=== PATIENT | female | born 1990 | race Two or more races ===

== ENCOUNTER 2022-11-15 08:49 | Emergency (ER) | payer MEDICAID, OTHER, SELFPAY ==
[2022-11-15 08:52] VITALS: BP 131/77; PULSE 94; RESP 18; TEMP 36.6; O2SAT 98; BMI 22.9
--- NOTE | 2022-11-15 09:08 | ED_ITS ---
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 She reports a h istory of cystitis and states that she took 1 Macrobid this morning without any relief. She reports that in her home country of [place] her symptoms typically improve with Macrobid. She also reports an episode of right lower quadrant pain which radiated to her back this morning. Reports history of ovarian cysts prior to giving to her son. Denies any nausea, vomiting, diarrhea, constipat ion. Denies any vaginal discharge or vaginal bleeding. Denies any concern for STIs. Denies fevers. MD elicited complaint: dysuria Pertinent past history: interstitial cystits Onset (ago): hour(s) Location of symptoms: suprapubic, RLQ and urethra Severity: severe Quality of pain: burning Consistency: constant Vaginal discharge: none Vaginal bleeding: none Urinary symptoms: Dysuria and Frequency Exacerbating factors: urination Relieving factors: none Associated symptoms: back pain Treatment prior to arrival: other (nitrofurantoin) Sexual activity: Yes Patient : No Related Data Previous Rx's Medication Instructions Recorded cefuroxime axetil 500 mg tablet 500 mg PO BID #13 tabs 11/15/22 phenazopyridine 200 mg tablet 200 mg PO TID PRN pain #5 tabs 11/15/22 Allergies Allergy/AdvReac Type Severity Reaction Status Date / Time No Known Allergies Allergy Verified 11/15/22 08:57 Review of Systems Review of Systems: As per HPI. Yes all other systems are reviewed and are negative Constitutional: Constitutional: Reports as per HPI [facility] Social History Social History Advance Directives: No Advance Directives Information Provided: Yes Patient : No Physical Exam Vital Signs: Vital Signs: Last Vital Signs Temp 97.8 F 11/15/22 08:52 Pulse 94 11/15/22 08:52 Resp 18 11/15/22 08:52 BP 131/77 11/15/22 08:52 Pulse Ox 98 11/15/22 08:52 O2 Del Method Room Air 11/15/22 08:52 BMI result Body Mass Index 22.9 Vital signs have been reviewed and appear to be correct. Blood pressure normal. Heart rate normal. Respiratory rate normal. Temperature normal. Oxygen saturation normal. Const: General: cooperative, healthy appearing and no acute distress Orientation/consciousness: oriented to person, oriented to place, oriented to time and patient oriented x3 Limitations: no limitations HEENT: Head: Yes normocephalic and Yes atraumatic Ears: external ears normal General nose exam: Normal external nose present Face and sinus: Yes face symmetric Mouth: oropharynx normal and moist mucous membranes Throat: Yes uvula midline Eyes: Pupils: Equal, round and reactive pupils present Neck: Neck: Yes normal visual inspection and Yes supple Resp: Effort & Inspection: normal respiratory effort and able to speak in complete sentences Auscultation: clear to auscultation bilaterally Cardio: Rate: regular rate Rhythm: regular rhythm Heart sounds: S1 normal heart sound present and S2 normal heart sound present GI: Palpation (GI): Soft to palpation and nontender Auscultation: normoactive bowel sounds : General: Yes no CVA tenderness Back/Spine/Pelvis: Back: no CVA tenderness Skin: General skin exam: elasticity normal and turgor normal Neuro: General: oriented to person, oriented to place, oriented to time, patient oriented x3, moves all extremities, no focal motor deficits and CN's II- XI intact bilaterally Cranial nerves: Yes Equal, round and reactive pupils present Cognition (Neuro): normal cognition Extrem: General: Yes full ROM, Yes no pedal edema and Yes no calf tenderness Psych: Mental Status: mental status grossly normal Affect: normal affect Thought process: Normal thought process present Medications Administered Discontinued Medications Generic Name Dose Route Start Last Admin Trade Name Freq PRN Reason Stop Dose Admin Cefuroxime Axetil 500 mg 11/15/22 09:55 11/15/22 10:08 Cefuroxime Axetil 500 Mg Tablet PO 11/15/22 09:56 500 mg ONCE ONE Administration Phenazopyridine HCl 200 mg 11/15/22 09:55 11/15/22 10:08 Phenazopyridine Hcl 200 Mg Tablet PO 11/15/22 09:56 200 mg ONCE ONE Administration Medical Decision Making Medical Decision Making MDM Narrative: Patient is a 32-year-old [place]-speaking female presenting to the emergency department with complaint dysuria since early this morning. On exam patient is awake, A+Ox3, VS WNL, afebrile, normal neurological exam without focal deficits, abdomen is soft and nontender, no guarding or rebound tenderness, no CVA tenderness. Given reported symptoms and physical exam findings, initial differential includes UTI/pyelonephritis, STI, cysitis, ovarian cyst. Low suspicion for kidney stone or infected stone. UA positive for 3+ leuks, 2+ blood, greater than 50 wbc's. Do not suspect pyelonephritis as patient does not have any CVA tenderness, is afebrile, not tachycardic. Patient declining testing for STIs. Will treat patient for UTI with cefuroxime b.i.d. for 7 days, will also prescribe Pyridium for discomfort. Advised patient to drink plenty of fluids and follow-up with primary care provider. Return precautions discussed at bedside. Patient verbalized understanding of and agreement with plan. Differential Diagnosis Differential Diagnoses: The differential diagnosis associated with the presentation includes As per MDM. Lab Data [facility] Lab Attestation statement: I reviewed the patient's lab results. As per MDM. Labs: Lab Results 11/15/22 11/15/22 Range/Units 09:38 09:38 Urine Color Yellow Urine Appearance Cloudy Urine pH 5.5 (5.0-9.0) Ur Specific Staley 1.020 (1.005-1.025) Urine Protein Negative (Neg-Trace) mg/dL Urine Glucose (UA) Negative (Negative) mg/dL Urine Ketones Negative (Negative) mg/dL Urine Blood Moderate (2+) H (Negative) Urine Nitrite Negative (Negative) Ur Leukocyte Esterase Large (3+) H (Negative) Urine RBC >20 H (0-2) /HPF Urine WBC >50 H (0-5) /HPF Ur Squamous Epith Cells 0-2 (0-2) /HPF Urine Bacteria None Seen (None Seen) Hyaline Casts 0-2 (0-2) /LPF Urine Test NEGATIVE (NEGATIVE) External Record Review External record reviewed: Inpatient record, Office record and Outpatient record Prescription Management I considered prescription management with: Pain Medication and Antibiotic Discharge Plan Discharge Clinical Impression: Urinary tract infection Patient Disposition: Home, Self-Care Instructions: Urinary Tract Infection in Women (DC) Additional Instructions: Teresa sido evaluado en el departamento de emergencias hoy por morris s?ntomas urinarios. [place] evaluaci?n, incluido el an?lisis de orina, sugiere que morris s?ntomas se deben a yamile infecci?n del tracto urinario. [place] los antibi?ticos recetados natalie todo el tratamiento seg?n las indicaciones. Kobe un seguimiento con zarco proveedor de atenci?n primaria dentro de los 2 d?as. Regrese al departamento de emergencias si experimenta fiebre de 100.4? F o m?s, dolor que empeora o no controla, v?mitos, dolor en el costado o cualquier otro s?ntoma preocupante. Prescriptions: New cefuroxime axetil 500 mg tablet 500 mg PO BID Qty: 13 0RF Rx Instructions: You received your first dose in the emergency department this morning. Pleas e take your next dose at bedtime. phenazopyridine 200 mg tablet 200 mg PO TID PRN (Reason: pain) Qty: 5 0RF Interventions: ED Discharge Assessment Last Done: 11/15/22 10:39 Discharge Date/Time: 11/15/22 10:40
[2022-11-15 09:44] LABS: Appearance Urine Cloudy; Color Urine Yellow; Glucose Urine UA Negative (Negative); Leukocyte Esterase Urine Large (3+) (Negative); Nitrite Urine Negative (Negative); PH 5.5 (5.0-9.0); UMIC TRIGGER UACC YES; Urine Blood Moderate (2+) (Negative); Urine Ketones Negative (Negative); Urine Protein Negative (Neg-Trace)
[2022-11-15 09:45] LABS: UPreg QC Valid YES; Urine Pregnancy NEGATIVE (NEGATIVE)
[2022-11-15 09:46] LABS: Bacteria Urine None Seen (None Seen); Hyaline Casts Urine 0-2 /LPF (0-2); RBC Urine >20 /HPF (0-2); Squamous Epithelial Cell Urine 0-2 /HPF (0-2); UACC Culture Trigger YES; WBC Urine >50 /HPF (0-5)
[2022-11-15] MEDS: Phenazopyridine HCL 200 MG TABLET PO (10:08)
== END 2022-11-15 10:40 | disposition home or self-care (01) ==
PROVIDERS: Registered Nurse Emergency; Emergency Provider Emergency Medicine
DX: N39.0 Urinary tract infection, site not specified (principal); Z79.899 Other long term (current) drug therapy
CPT/HCPCS: 81001; 81025; 87086; 99283

== ENCOUNTER 2023-02-12 13:50 | Outpatient (REF) | payer MEDICAID, OTHER, SELFPAY ==
[2023-02-12 14:20] LABS: Appearance Urine Clear; Color Urine Orange; Glucose Urine UA 100 mg/dL (Negative); PH 5.5 (5.0-9.0); Specific Gravity - Urine 1.025 (1.005-1.025); UMIC TRIGGER UA YES; Urine Blood Negative (Negative); Urine Ketones Negative (Negative); Urine Protein 30 (1+) mg/dL (Neg-Trace)
[2023-02-12 14:44] LABS: RBC Urine 0-2 /HPF (0-2); WBC Urine 0-5 /HPF (0-5)
[2023-02-12 14:45] LABS: Bacteria Urine None Seen (None Seen); Hyaline Casts Urine 0-2 /LPF (0-2); Squamous Epithelial Cell Urine 0-2 /HPF (0-2)
[2023-02-18 11:14] LABS: Candida glabrata RNA NOT DETECTED (NOT DETECTED); Candida species RNA NOT DETECTED (NOT DETECTED); Trichomonas vaginalis RNA NOT DETECTED (NOT DETECTED)
== END 2023-02-12 13:51 | disposition home or self-care (01) ==
LOC: HO.HHCLNP 13:50
PROVIDERS: Visit Provider Nurse Practitioner Primary Care
DX: R30.0 Dysuria (principal)
CPT/HCPCS: 36415; 81001; 81513; 87086; 87481; 87491; 87591; 87661

== ENCOUNTER 2023-05-12 14:51 | Outpatient (REF) | payer MEDICAID, OTHER, SELFPAY ==
--- NOTE | ~2023-05-12 | US_ITS ---
EXAMINATION: US PELVIS CLINICAL INFORMATION: Chronic pelvic pain. COMPARISON: None available. TECHNIQUE: Ultrasound of the pelvis is performed using both transabdominal and transvaginal transducers along with Doppler. Transvaginal imaging is performed due to inadequate visualization transabdominally. FINDINGS: UTERUS: The uterus is anteverted and measures 8.1 x 3.0 x 3.2 cm. The double wall endometrial thickness is 0.7 mm. The uterus is smooth in contour and has normal myometrial echogenicity. No visible fibroid. Nabothian cysts are present in the cervix. ADNEXA: Both ovaries are visualized. There is normal color flow to the adnexa. There is no ovarian torsion. There is no pelvic ascites or fluid collection. Right ovary measures 2.7 x 1.5 x 1.7 cm for a volume of 3.6 mL. Follicular cysts are noted Left ovary measures 3.2 x 1.6 x 2.0 cm for a volume of 5.4 mL. Follicular cysts are noted including one exophytic 1.3 x 0.7 x 1.2 cm cyst. US/US pelvic and transvaginal IMPRESSION: Unremarkable pelvic ultrasound.
== END 2023-05-12 14:52 | disposition home or self-care (01) ==
LOC: HO.US 14:51
PROVIDERS: PCP Student in an Organized Health Care Education/Training Program; Visit Provider Student in an Organized Health Care Education/Training Program
DX: R10.2 Pelvic and perineal pain (principal)
CPT/HCPCS: 76830; 76856

== ENCOUNTER 2023-05-24 09:13 | Outpatient (REF) | payer MEDICAID, OTHER, SELFPAY ==
[2023-05-24 11:18] LABS: Appearance Urine Clear; Color Urine Yellow; Glucose Urine UA Negative (Negative); Leukocyte Esterase Urine Negative (Negative); Nitrite Urine Negative (Negative); PH 5.5 (5.0-9.0); Specific Gravity - Urine 1.025 (1.005-1.025); Urine Blood Negative (Negative); Urine Ketones Negative (Negative); Urine Protein Negative (Neg-Trace)
[2023-05-24 11:25] LABS: Bacteria Urine None Seen (None Seen); Hyaline Casts Urine 0-2 /LPF (0-2); RBC Urine 0-2 /HPF (0-2); WBC Urine 0-5 /HPF (0-5)
[2023-05-24 11:39] LABS: Hematocrit 38.1 % (37.0-47.0); Hemoglobin 13.1 g/dl (12.0-16.0); Mean Corpuscular HGB Conc 34.4 g/dl (31.0-35.0); Mean Corpuscular Hemoglobin 30.5 pg (27.0-33.0); Mean Corpuscular Volume 88.6 fL (80.0-98.0); Mean Platelet Volume 10.4 fL (9.4-12.3); Platelet Count 202 X10*3/uL (160-400); Red Cell Distribution Width 12.7 % (11.0-16.0); White Blood Count 4.3 X10*3/uL (4.8-10.8)
[2023-05-24 12:01] LABS: Estimated Average Glucose 88 mg/dL; Hemoglobin A1c % 4.7 % (<6.0)
[2023-05-24 12:14] LABS: Alanine Aminotransferase 10 U/L (0-31); Albumin Level 3.9 g/dL (3.5-5.0); Alkaline Phosphatase 50 U/L (39-117); Anion Gap 9 (12-20); Aspartate Amino Transferase 15 U/L (5-31); Bilirubin Total 0.4 mg/dL (0.0-1.0); Blood Urea Nitrogen 14 mg/dL (9-16); C Reactive Protein < 0.10 mg/dL (< or = 0.50); Calcium 8.8 mg/dL (8.4-10.2); Carbon Dioxide 28 mmol/L (22-29); Chloride 109 mmol/L (96-108); Cholesterol 174 mg/dL (<200); Estimated Glomerular Filt Rate > 60; Glucose Random 81 mg/dL (60-115); HDL Cholesterol 54 mg/dL (>40); LDL Cholesterol Calculated 98 mg/dL (<100); Potassium 3.7 mmol/L (3.3-5.1); Sodium 142 mmol/L (135-145); Total Protein 6.8 g/dL (6.5-8.0); Triglycerides 112 mg/dL (<150)
[2023-05-24 12:16] LABS: TSH reflex Free T4 1.08 uIU/mL (0.32-4.0)
[2023-05-24 12:45] LABS: Erythrocyte Sedimentation Rate 5 MM/HR (0-20)
[2023-05-24 14:38] LABS: CT PCR NOT DETECTED (Not Detect.); NG PCR NOT DETECTED (Not Detect.)
[2023-05-25 05:06] LABS: Syphilis Screen Nonreactive (Nonreactive)
[2023-05-25 05:27] LABS: HBS Num1 0.69 mIU/mL (0-7.99); HBc Num1 0.12 S/CO (0.00-0.79); HBsAGNum1 0.39 S/CO (0.00-0.99); HIV AB/AG Nonreactive (Nonreactive); HIV Num 1 0.06 S/CO (0.00-0.99); Hepatitis B Core Antibody Nonreactive (Nonreactive); Hepatitis B Surface Antigen Negative (Negative); ~HepC Num1 0.14 S/CO (0.00-0.79); ~Hepatitis B Surface Antibody NONREACTIVE (Nonreactive); ~Hepatitis C Antibody Nonreactive (Nonreactive)
[2023-05-25 05:37] LABS: CT PCR NOT DETECTED (Not Detect.); NG PCR NOT DETECTED (Not Detect.)
[2023-05-26 17:54] LABS: Anti Nuclear Antibody Screen NEGATIVE (NEGATIVE)
[2023-05-26 22:04] LABS: TS Negative Control Passed; TS Panel A 0; TS Panel B 0; TS Positive Control Passed; TSpotTB Negative (Negative)
== END 2023-05-24 09:14 | disposition home or self-care (01) ==
LOC: HO.HHCL 09:13
PROVIDERS: Advanced Practice Midwife; Visit Provider Student in an Organized Health Care Education/Training Program
DX: Z00.00 Encounter for general adult medical examination without abnormal findings (principal); R21 Rash and other nonspecific skin eruption; N76.6 Ulceration of vulva; Z11.3 Encounter for screening for infections with a predominantly sexual mode of transmission
CPT/HCPCS: 0353U; 36415; 80053; 80061; 81001; 83036; 84443; 85027; 85652; 86038; 86140; 86481; 86695; 86696; 86704; 86706; 86780; 86803; 87340; 87389

== ENCOUNTER 2023-05-24 18:56 | Outpatient (REF) | payer MEDICAID, OTHER, SELFPAY ==
[2023-05-28 06:33] LABS: HPV mRNA E6/E7 rflx Not Detected (Not Detected)
== END 2023-05-24 18:57 | disposition home or self-care (01) ==
LOC: HO.HHCLNP 18:56
PROVIDERS: Visit Provider Advanced Practice Midwife
DX: Z01.419 Encounter for gynecological examination (general) (routine) without abnormal findings (principal)
CPT/HCPCS: 87624; 88142

== ENCOUNTER 2023-10-05 15:20 | Outpatient (REF) | payer MEDICAID, OTHER, SELFPAY ==
[2023-10-05 16:02] LABS: MANUAL DIFF FLAG NO
[2023-10-05 16:12] LABS: Basophils Percent Auto 0.4 % (0-2); Eosinophils Absolute Auto 0.1 X10*3/uL (0.0-0.4); Eosinophils Percent Auto 1.6 % (0-4); Hematocrit 35.6 % (37.0-47.0); Hemoglobin 12.2 g/dl (12.0-16.0); Imm Gran Abs Auto 0.01 X10*3/uL (0.00-0.03); Imm Gran Pct Auto 0.2 % (0.0-0.4); Lymphocytes Absolute Auto 1.4 X10*3/uL (1.2-4.9); Lymphocytes Percent Auto 29.5 % (20-40); Mean Corpuscular HGB Conc 34.3 g/dl (31.0-35.0); Mean Corpuscular Hemoglobin 30.7 pg (27.0-33.0); Mean Corpuscular Volume 89.7 fL (80.0-98.0); Mean Platelet Volume 10.1 fL (9.4-12.3); Monocytes Absolute Auto 0.4 X10*3/uL (0.1-1.2); Neutrophils Absolute Auto 2.9 x10*3/uL (2.0-8.3); Neutrophils Percent Auto 60.3 % (45-73); Platelet Count 225 X10*3/uL (160-400); Red Blood Count 3.97 X10*6/uL (4.20-5.50); Red Cell Distribution Width 12.3 % (11.0-16.0); White Blood Count 4.9 X10*3/uL (4.8-10.8)
[2023-10-05 16:44] LABS: Alanine Aminotransferase 7 U/L (0-31); Albumin Level 4.2 g/dL (3.5-5.0); Alkaline Phosphatase 67 U/L (39-117); Anion Gap 12 (12-20); Aspartate Amino Transferase 13 U/L (5-31); Bilirubin Total 0.2 mg/dL (0.0-1.0); Blood Urea Nitrogen 11 mg/dL (9-16); Calcium 8.8 mg/dL (8.4-10.2); Carbon Dioxide 23 mmol/L (22-29); Chloride 107 mmol/L (96-108); Estimated Glomerular Filt Rate > 60; Glucose Random 78 mg/dL (60-115); Potassium 3.8 mmol/L (3.3-5.1); Sodium 138 mmol/L (135-145); Total Protein 6.9 g/dL (6.5-8.0)
[2023-10-05 17:01] LABS: TSH reflex Free T4 0.82 uIU/mL (0.32-4.0)
== END 2023-10-05 15:21 | disposition home or self-care (01) ==
LOC: HO.HHCL 15:20
PROVIDERS: Visit Provider Student in an Organized Health Care Education/Training Program
DX: D72.819 Decreased white blood cell count, unspecified (principal)
CPT/HCPCS: 36415; 80053; 84443; 85025

== ENCOUNTER 2023-10-19 15:58 | Outpatient (REF) | payer MEDICAID, OTHER, SELFPAY ==
--- NOTE | ~2023-10-19 | US_ITS ---
EXAMINATION: US PELVIS CLINICAL INFORMATION: Left ovarian cyst, follow up, last menstrual period 09/27/2023. COMPARISON: 05/12/2023. TECHNIQUE: Ultrasound of the pelvis is performed using both transabdominal and transvaginal transducers along with Doppler. Transvaginal imaging is performed due to inadequate visualization transabdominally. FINDINGS: The uterus is anteverted and measures 7.4 x 3.9 x 4.6 cm. Small amount of fluid within the endometrial cavity. Double wall endometrial thickness is 7 mm. Right ovary measures 2.9 x 1.5 x 1.7 cm, volume 3.9 mL. Left ovary measures 2.3 x 1.1 x 1.7 cm, volume 2.2 mL. 1.3 x 0.6 x 1.0 cm exophytic left ovarian cyst appears simple. Previous exam demonstrated a 1.3 x 0.7 x 1.2 cm left ovarian exophytic cyst. There is no specific indication for additional imaging. Small amount of free fluid in the pelvis. US/US pelvic and transvaginal IMPRESSION: 1. Small amount of fluid within the endometrial cavity. Double wall endometrial thickness is 7 mm. 2. 1.3 cm exophytic left ovarian cyst appears simple. Previous exam demonstrated a 1.3 x 0.7 x 1.2 cm left ovarian exophytic cyst. There is no specific indication for additional imaging. 3. Small amount of free fluid in the pelvis.
== END 2023-10-19 15:59 | disposition home or self-care (01) ==
LOC: HO.US 15:58
PROVIDERS: PCP Student in an Organized Health Care Education/Training Program; Visit Provider Student in an Organized Health Care Education/Training Program
DX: R10.2 Pelvic and perineal pain (principal); N83.202 Unspecified ovarian cyst, left side
CPT/HCPCS: 76830; 76856

== ENCOUNTER 2023-11-11 17:32 | Outpatient (REF) | payer MEDICAID, OTHER, SELFPAY | END 2023-11-11 17:33 | disposition home or self-care (01) | LOC: HO.HHCLNP 17:32 | PROVIDERS: Visit Provider Advanced Practice Midwife | DX: R35.0 Frequency of micturition (principal) | CPT/HCPCS: 87086; 87088; 87186 ==

== ENCOUNTER 2023-11-13 14:01 | Emergency (ER) | payer MEDICAID, OTHER, SELFPAY ==
[2023-11-13 14:21] VITALS: BP 112/63; PULSE 87; RESP 16; TEMP 36.8; O2SAT 100; BMI 25.9
[2023-11-13 14:57] LABS: MANUAL DIFF FLAG NO
--- NOTE | 2023-11-13 14:57 | ED.FEMALEGU ---
HPI - Female Genitourinary General Chief complaint: Urogenital-Female Stated complaint: freq urination Time Seen by Provider: 11/13/23 14:56 Source: patient Mode of arrival: ambulatory Limitations: language barrier (Citizen Of [place]-speaking certified court/medical interpreter utilized) History of Present Illness HPI Narrative: Patient is a 33-year-old female who presents emergency department for evaluation. She endorses 3 days of urinary frequency and dysuria. Two days ago she was prescribed Macrobid and Pyridium but she has not had any improvement. She states that typically Macrobid does help her symptoms after 2 days. She feels as though she is having urinary frequency and urgency at this time and pain diffusely across the lower back. Denies nausea, vomiting, fevers, chills, diarrhea, constipation. Related Data Previous Rx's ?Medication ?Instructions ?Recorded cefuroxime axetil 500 mg tablet 500 mg PO BID #13 tabs 11/15/22 phenazopyridine 200 mg tablet 200 mg PO TID PRN pain #5 tabs 11/15/22 cefuroxime axetil 500 mg tablet 500 mg PO BID #10 tabs 11/13/23 Allergies Allergy/AdvReac Type Severity Reaction Status Date / Time No Known Allergies Allergy Verified 11/13/23 14:23 Review of Systems Review of Systems: Yes all other systems are reviewed and are negative PMFSH Past Medical History Attestation statement: The following information was validated with the patient. Source: old records reviewed Social History Social History (System 02/16/23 @ 07:24 by Fabi Murray) Smoked in Last 30 Days: No Use of substances other than those prescribed or required for medical reasons: No Advance Directives: No Advance Directives Information Provided: No Do you have a plan to hurt others: No Plan Physical Exam Vital Signs: Vital Signs: Last Vital Signs Temp 98.2 F 11/13/23 16:00 Pulse 74 11/13/23 16:00 Resp 18 11/13/23 16:00 BP 105/66 11/13/23 16:00 Pulse Ox 99 11/13/23 16:00 O2 Del Method Room Air 11/13/23 16:00 BMI result Body Mass Index 25.9 Appearance: Alert.?Oriented to person, place and time. No acute distress.?Normal affect. Eyes: Pupils equal, round and reactive to light.? ENT: Pharynx normal.?? Neck: Normal inspection.? Neck supple.?? CVS: Heart sounds normal. Normal heart rate and rhythm.? Pulses normal.?? Respiratory: No respiratory distress.? Lung sounds clear to auscultation bilaterally?? Abdomen: Soft and non-tender. Normoactive bowel sounds. No CVA tenderness. Skin: Skin warm and dry.? Normal skin color.? Extremities: No lower extremity edema.? Neuro: Moves all extremities spontaneously. Sensation intact bilaterally. Ambulates with normal steady gait. Course Reevaluation(s) Reevaluation #1: Urinalysis with improvement when compared to prior, remains nitrite positive with trace leukocyte esterase, however she did have urine culture 2 days ago growing E coli, patient feels strongly about having her antibiotic changed at this point though I did explain to her that her most recent culture showed sensitivity to Macrobid. Will change to cefuroxime at this time. Stable for discharge. Tolerating oral intake. Advised outpatient follow-up with primary care provider. All questions answered. Medical Decision Making Medical Decision Making [facility] Narrative: Patient is a 33-year-old female past medical history of urinary tract infections presenting to emergency department for evaluation of symptoms as per HPI. On examination appears overall well, nontoxic, afebrile. Abdominal examination is benign. No CVA tenderness. No rashes or lesions. Denies possibility of ; but is uncertain of the date of her last menstrual cycle. Denies concern for sexually transmitted infections and declines testing. Will obtain CBC to evaluate for leukocytosis/ anemia, CMP and lipase to evaluate for abnormal electrolytes /abnormal renal function/ abnormal hepatic/biliary function, and repeat Urinalysis, postvoid bladder scan she denies examination of the genitalia, denies open sores/lesions. Upon review of medical record her urine culture from 11/11/2023 grew E coli pain sensitivity. I feel that the Macrobid would be adequate treatment, but likely has not taken this long enough for symptomatic improvement, however she feels strongly that she needs a change. Differential Diagnosis Differential Diagnoses: The differential diagnosis associated with the presentation includes (Urinary tract infection cholecystitis, suspect less likely to have acute pyelonephritis given no CVA tenderness nausea vomiting or fever. Sexually transmitted infection. Genital herpes) Admission/Observation Consideration of admission/observation: Escalation of care including admission/observation considered Lab Data [facility] Lab Attestation statement: I reviewed the patient's lab results. CBC is without leukocytosis anemia or thrombocytopenia. No electrolyte derangement. No TANIA. LFTs within normal range. Urinalysis positive for nitrites, trace leukocyte esterase, no urine bacteria seen, suspect this is secondary to her recent treatment with antibiotic. hCG is negative 11/13/23 14:45 11/13/23 14:45 Labs: Lab Results 11/13/23 11/13/23 Range/Units 14:45 15:48 WBC 4.8 (4.8-10.8) X10*3/uL RBC 4.07 L (4.20-5.50) X10*6/uL Hgb 12.4 (12.0-16.0) g/dl Hct 36.2 L (37.0-47.0) % MCV 88.9 (80.0-98.0) fL MCH 30.5 (27.0-33.0) pg MCHC 34.3 (31.0-35.0) g/dl RDW 12.2 (11.0-16.0) % Plt Count 205 (160-400) X10*3/uL MPV 9.6 (9.4-12.3) fL Immature Gran % (Auto) 0.6 H (0.0-0.4) % Neut % (Auto) 59.0 (45-73) % Lymph % (Auto) 29.4 (20-40) % Benzie % (Auto) 8.9 (2-11) % Eos % (Auto) 1.7 (0-4) % Baso % (Auto) 0.4 (0-2) % Lymph # (Auto) 1.4 (1.2-4.9) X10*3/uL Benzie # (Auto) 0.4 (0.1-1.2) X10*3/uL Eos # (Auto) 0.1 (0.0-0.4) X10*3/uL Baso # (Auto) 0.0 (0.0-0.2) X10*3/uL Abs Immat Gran (auto) 0.03 (0.00-0.03) X10*3/uL Absolute Neuts (auto) 2.9 (2.0-8.3) x10*3/uL Absolute Nucleated RBC 0.000 (0.0-0.012) X10*3/uL Nucleated RBC % (auto) 0.0 (0.0-0.2) /100WBC Sodium 142 (135-145) mmol/L Potassium 4.0 (3.3-5.1) mmol/L Chloride 110 H (96-108) mmol/L Carbon Dioxide 25 (22-29) mmol/L Anion Gap 11 L (12-20) BUN 11 (9-16) mg/dL Creatinine 0.70 (0.5-1.4) mg/dL Estim Creat Clear Calc 87.1 Estimated GFR > 60 Random Glucose 73 (60-115) mg/dL Calcium 8.5 (8.4-10.2) mg/dL Total Bilirubin 0.2 (0.0-1.0) mg/dL AST 13 (5-31) U/L ALT 8 (0-31) U/L Alkaline Phosphatase 62 (39-117) U/L Total Protein 6.8 (6.5-8.0) g/dL Albumin 3.9 (3.5-5.0) g/dL Urine Color Dark Yellow Urine Appearance Clear Urine pH 7.0 (5.0-9.0) Ur Specific Ernest 1.020 (1.005-1.025) Urine Protein Negative (Neg-Trace) mg/dL Urine Glucose (UA) Negative (Negative) mg/dL Urine Ketones Negative (Negative) mg/dL Urine Blood Negative (Negative) Urine Nitrite Positive H (Negative) Ur Leukocyte Esterase Trace H (Negative) Urine RBC 0-2 (0-2) /HPF Urine WBC 0-5 (0-5) /HPF Ur Squamous Epith Cells 3-5 (0-2) /HPF Urine Bacteria None Seen (None Seen) Hyaline Casts 0-2 (0-2) /LPF Urine Test NEGATIVE (NEGATIVE) Independent Historian Clinical information obtained from an independent historian. History obtained from or confirmed by: Spouse External Record Review External record reviewed: Outpatient record Prescription Management I considered prescription management with: Pain Medication (Acetaminophen, ibuprofen) and Antibiotic Discharge Plan Discharge Clinical Impression: Urinary tract infection Instructions: Urinary Tract Infection in Women (DC) Additional Instructions: As discussed, your testing today does not show an elevated white blood cell count which is very reassuring, your kidney functioning is normal. It is likely that the Macrobid you are currently prescribed would treat the infection that you have based on the most recent urine culture we received. However, given your expressed concern for no improvement in your symptoms despite a few days on treatment, this was changed to cefuroxime which she will take twice daily for the duration of the course, you may stop taking Macrobid at this time. You can take ibuprofen 200 mg, 3 tablets (600mg) every 6-8 hours as needed for pain, in addition to Tylenol 500 mg, 2 tablets (1,000mg) every 4-6 hours as needed for pain, but not to exceed 3 doses daily (3,000mg).? Follow-up with your primary care provider. You may return back to emergency department with any new or worsening symptoms or concerns. Prescriptions: New cefuroxime axetil 500 mg tablet 500 mg PO BID Qty: 10 0RF No Action cefuroxime axetil 500 mg tablet 500 mg PO BID Qty: 13 0RF Rx Instructions: You received your first dose in the emergency department this morning. Please take your next dose at bedtime. phenazopyridine 200 mg tablet 200 mg PO TID PRN (Reason: pain) Qty: 5 0RF Referrals: Marry Cabrera MD [Primary Care Provider] - Print Language: Citizen Of [place]
[2023-11-13 14:58] LABS: Basophils Percent Auto 0.4 % (0-2); Eosinophils Absolute Auto 0.1 X10*3/uL (0.0-0.4); Eosinophils Percent Auto 1.7 % (0-4); Hematocrit 36.2 % (37.0-47.0); Hemoglobin 12.4 g/dl (12.0-16.0); Imm Gran Abs Auto 0.03 X10*3/uL (0.00-0.03); Imm Gran Pct Auto 0.6 % (0.0-0.4); Lymphocytes Absolute Auto 1.4 X10*3/uL (1.2-4.9); Lymphocytes Percent Auto 29.4 % (20-40); Mean Corpuscular HGB Conc 34.3 g/dl (31.0-35.0); Mean Corpuscular Hemoglobin 30.5 pg (27.0-33.0); Mean Corpuscular Volume 88.9 fL (80.0-98.0); Mean Platelet Volume 9.6 fL (9.4-12.3); Monocytes Absolute Auto 0.4 X10*3/uL (0.1-1.2); Monocytes Percent Auto 8.9 % (2-11); Neutrophils Absolute Auto 2.9 x10*3/uL (2.0-8.3); Platelet Count 205 X10*3/uL (160-400); Red Blood Count 4.07 X10*6/uL (4.20-5.50); Red Cell Distribution Width 12.2 % (11.0-16.0); White Blood Count 4.8 X10*3/uL (4.8-10.8)
[2023-11-13 15:13] LABS: Alanine Aminotransferase 8 U/L (0-31); Albumin Level 3.9 g/dL (3.5-5.0); Alkaline Phosphatase 62 U/L (39-117); Anion Gap 11 (12-20); Aspartate Amino Transferase 13 U/L (5-31); Bilirubin Total 0.2 mg/dL (0.0-1.0); Blood Urea Nitrogen 11 mg/dL (9-16); Calcium 8.5 mg/dL (8.4-10.2); Carbon Dioxide 25 mmol/L (22-29); Chloride 110 mmol/L (96-108); Creatinine Clr Calc Pharmacy 87.1; Estimated Glomerular Filt Rate > 60; Glucose Random 73 mg/dL (60-115); Sodium 142 mmol/L (135-145); Total Protein 6.8 g/dL (6.5-8.0)
--- NOTE | 2023-11-13 15:52 | PC.NURSE ---
patient presents through external triage with cc of back pain, abdominal pain, urinary frequency and dysuria for the last 3 days. patient states she was seen at her doctors a few days ago and prescribed an antibiotic (macrobid) and another medication for bladder spasms but is still having pain and burning when she urinates. patient denies any fevers at home or any discharge. patinet abdomen soft, some tenderness to palpation throughout lower quadrants. patient ambulated with steady gait to provide urine sample, PVR bladder scan completed by this RN and showed 1mL of urine left in bladder after voiding. urine sample sent to lab at this time. patient blood work completed in triage. awaiting lab results at this time.
[2023-11-13 16:00] VITALS: BP 105/66; PULSE 74; RESP 18; TEMP 36.8; O2SAT 99
[2023-11-13 16:01] LABS: Appearance Urine Clear; Color Urine Dark Yellow; Glucose Urine UA Negative (Negative); Leukocyte Esterase Urine Trace (Negative); Nitrite Urine Positive (Negative); UMIC TRIGGER UACC YES; Urine Blood Negative (Negative); Urine Ketones Negative (Negative); Urine Protein Negative (Neg-Trace)
[2023-11-13 16:02] LABS: UPreg QC Valid YES; Urine Pregnancy NEGATIVE (NEGATIVE)
[2023-11-13 16:07] LABS: Bacteria Urine None Seen (None Seen); Hyaline Casts Urine 0-2 /LPF (0-2); RBC Urine 0-2 /HPF (0-2); UACC Culture Trigger YES; WBC Urine 0-5 /HPF (0-5)
[2023-11-13] MEDS: Ketorolac Tromethamine 15 MG/ML VIAL IM (16:25)
[2023-11-13 16:27] VITALS: BP 105/66; PULSE 74; RESP 18; TEMP 36.8; O2SAT 99
== END 2023-11-13 16:37 | disposition home or self-care (01) ==
PROVIDERS: Nurse Practitioner Family; Emergency Provider Emergency Medicine; PCP Student in an Organized Health Care Education/Training Program
DX: N39.0 Urinary tract infection, site not specified (principal)
CPT/HCPCS: 36415; 51798; 80053; 81001; 81003; 81025; 85025; 87086; 96372; 99284; J1885

== ENCOUNTER 2024-08-01 10:54 | Outpatient (REF) | payer MEDICAID, OTHER, SELFPAY ==
--- NOTE | ~2024-08-01 | MM_ITS ---
EXAMINATION: MM DIAGNOSTIC DIGITAL BREAST TOMOSYNTHESIS, BILATERAL Bilateral Limited ultrasound. CLINICAL INFORMATION: Bilateral breast pain. COMPARISON: Mammography: Comparison is made with relevant prior exams. TECHNIQUE: Digital breast mammography with tomosynthesis is performed in both the craniocaudal and mediolateral oblique views along with computer-aided detection (CAD). FINDINGS: The breasts are extremely dense, which lowers the sensitivity of mammography (ACR BI-RADS breast composition Category d). [place] markers bilateral upper outer breast at site of pain without underlying abnormality. There are no significant masses, abnormal calcifications, or other abnormalities. Targeted color Doppler ultrasound scanning in the right breast area of patient's pain from 6-12 o'clock demonstrates normal fibronodular breast tissue and there is a few simple to minimally complicated cysts: A simple cyst at 11:00 recent meters from the nipple measuring 7 x 7 x 4 mm. There are adjacent subcentimeter cysts which are simple. Targeted color Doppler ultrasound scanning in the left breast area of patient's pain from 12 6:00 demonstrates normal fibroglandular breast tissue and a simple cyst: A simple cyst at 2:00 8 cm from the nipple measuring 9 x 9 x 4 mm. Results are provided to the patient at time of visit by the technologist. MM/MM tomosynthesis diagnostic BI IMPRESSION: No definite mammographic or sonographic abnormality to account for the patient's bilateral breast pain. Recommend clinical evaluation and follow-up. Bilateral incidental simple cyst on ultrasound. Benign. ASSESSMENT: BI-RADS BI-RADS 2 - Benign Findings RECOMMENDATION: 1. Patient should be managed based on the clinical impression. 2. Otherwise, routine annual screening mammography. Electronically signed by: Carmen Pruitt DO 08/01/2024 11:50 AM EDT
--- OUTSIDE RECORDS SUMMARY | 2024-08-01 12:10 | XMS_ITS | Encounter Summary ---
Author Organization [employer] Address [address] [place] [address] Care Team Providers Care Cd Mixer Helper Name Role Phone Marry Cabrera MD Primary Care Pro vider Encounter Details Date Type Department Care Team ([facility] st Contact Info) Description 05/27/2023 Orders Only [facility] MEDICINE [address] [place] [address] Melissa Melchor CN [address] [place] [address] Social History Tobacco Use Types Packs/Day Years Used Date Smoking Tobacco: Never Passive Smoke Exposure: Never Smokeless Tobacco: Never Alcohol Use Standard Drinks/Week Comments Not Currently 0 (1 standard drink = 0.6 oz pur e alcohol) social Depression Answer Date Recorded Patient Health Questionnaire-9 Score 10 04/29/2023 Patient Health Questionnaire-9 Score 10 04/29/2023 Last PHQ-9: Questionnaire Data Not on file 0 04/29/2023 Housing Stability Answer Date Recorded What is your housing situation today? I do not have housing (Staying with others, in a hotel, in a jail, living outside on the street, on a beach, in a car, or in a park 04/21/[address] you li ve. Do you have problems with any of the following? None of the above 04/21/2023 Food Insecurity Answer Date Recorded Within the past 12 months, y ou worried that your food would run out before you got money to buy more: Sometimes True 2023 Within the past 12 months,th e food you bought just didn't last and you didn't have enough money to get more: Sometimes True 04/21/2023 Transportation Answer Date Recorded In the past 12 months, has l ack of transportation kept you from medical appts, meetings, work or from getting things needed for daily living? No 04/21/2023 Utilities Answer Date Recorded In the past 12 months, has t he electric, gas, oil or water company threatened to shut off services in your home? No 04/21/2023 Depression Answer Date Recorded Patient Health Questionnaire-2 Score 0 04/29/2023 Comments Unknown Sex and Gender Information Value Date Recorded Sex Assigned at Female 02/12/2023 8:42 AM EST Legal Sex Female 8:38 AM EST Gender Identity Female 02/12/2023 8:42 AM EST Sexual Orientation Straight 02/12/2023 8: 42 AM EST documented as of this encounter Plan of Treatment Upcoming Encounters Date Type Department Care Team (Late st Contact Info) Description 08/08/2024 10:15 AM EDT Office Visit [facility] MEDICINE [address] [place] [phone] Melissa Melchor CNM [address] [place] [phone] 08/22/2024 3:30 PM EDT Clinical Support [facility] DIABETES/NUTRITION [address] [place] [id number] Danica Neumann, BRENDA [address] [place] [phone] 08/23/2024 2:00 PM EDT Office Visit [facility] MEDICINE [address] [place] [phone] Marry Cabrera MD [address] [place] [phone] documented as of this encounter Visit Diagnoses Not on filedocumented in this encounter Additional Health Concerns Assessment Noted Time PHQ-9 Depression Total Score: 10 024 2:17 PM EST documented as of this encounter Care Teams Cd Mixer Helper Relationship Specialty Start Date End Date Marry Cabrera MD [address] [place] [id number] PCP - General Internal Medicine 04/30/23 documented as of this encounter
--- OUTSIDE RECORDS SUMMARY | 2024-08-01 12:10 | XMS_ITS | Clinical Summary ---
Author Organization [employer] Address [address] [facility] [address] [place] [address] Care Team Providers Care Portfolio Assistant Name Role Phone Marry Cabrera MD Primary Care Pro vider Allergies No known active allergies Medications * This document contains information received from the source organization and may not represent a complete record from that organization. metroNIDAZOLE (Metrogel) 0.75 % gelIndications: Rosacea Apply topically 2 times daily. 45 g 3 5 03/24/19 26 Active ammonium lactate (Amlactin) 12 % cream Apply topically if needed for dry skin. 140 g 1 5 Active melatonin 5 MG tablet Take 1 tablet (5 mg) by mouth Once per day. 30 tablet 2 5 Active acyclovir (Zovirax) 800 MG tablet Take 1 tablet (800 mg) by mouth 3 times daily. 6 tablet 10 5 07/21/19 25 Active Problems Problem Noted Date Diagnosed Date Mastalgia 06/21/2024 Adjustment disorder with mixed anxiety and depre ssed mood 06/21/2024 Recurrent genital herpes 05/28/2023 Vertigo 05/28/2023 Health care maintenance 05/02/2023 Lower urinary tract symptoms (LUTS) 05/02/2023 Insomnia 05/02/2023 Skin rash 05/02/2023 Chronic pelvic pain in female 05/02/2023 Resolved Problems Problem Noted Date Diagnosed Date Resolved Date Pruritus 08/18/2023 06/21/2024 Encounters * This document contains information received from the source organization and may not represent a complete record from that organization. Date Type Department Care Team Description 07/28/2024 3:00 PM EDT Nutrition [facility] DIABETES/NUTRITION [address] [place] [address] Overweight (BMI 25.0-29.9) 07/28/2024 Travel 07/06/2024 Orders Only [facility] MEDICINE [address] [place] [phone] Marry Cabrera MD Mastalgia (Primary Dx) 06/20/2024 2:30 PM EDT Office Visit [address] [address] Marry Cabrera MD Overweight (BMI 25.0-29.9) (Primary Dx); Dietary counseling; Exercise counseling; Mastalgia; Annual physical exam; Recurrent genital herpes; Health care maintenance; Skin rash 06/20/2024 Travel 06/09/2024 Patient Outreach [address] [address] Marry Cabrera MD Pre-visit Planning (Pre-visit planning - LVM ) 06/08/[address] [address] Marry Cabrera MD chart prep 06/01/[address] [phone] Marry Cabrera MD Nurse Triage from Last 3 Months Immunizations Immunization Administration Dates Next Due HPV 9-Valent 06/20/2024,07/07/2023,06/02/2023 Hep B, adult 12/03/2023,06/25/2023,05/28/2023 Influenza injectable quadriv alent preservative free 04/29/2023 Pfizer Covid-19 Vaccine 12+ 04/29/2023 Tdap 04/29/2023 Family History Medical History Relation Name Comments Hypertension Maternal Grandmother Migraines Mother Breast cancer Mother's Sister two materna l aunts with breast cancer in their 60s Diabetes Paternal Grandmother Hypertension Paternal Grandmother Relation Name Status Comments Maternal Grandmother Mother Mother's Sister Paternal Grandmother Social History Tobacco Use Types Packs/Day Years Used Date Smoking Tobacco: Never Passive Smoke Exposure: Never Smokeless Tobacco: Never Tobacco Cessation:Counseling Given: Not Answered Alcohol Use Standard Drinks/Week Comments Not Currently 0 (1 standard drink = 0.6 oz pur e alcohol) social Depression Answer Date Recorded Patient Health Questionnaire-9 Score 11 06/20/2024 Patient Health Questionnaire-9 Score 11 06/20/2024 Last PHQ-9: Questionnaire Data Not on file 0 06/20/2024 Housing Stability Answer Date Recorded What is your housing situation today? I have nat steven 06/20/[address] you li ve. Do you have problems with any of the following? None of the above 06/20/2024 Food Insecurity Answer Date Recorded Within the past 12 months, y ou worried that your food would run out before you got money to buy more: Never True 06/20/2024 Within the past 12 months,th e food you bought just didn't last and you didn't have enough money to get more: Never True 10/2024 Transportation Answer Date Recorded In the past 12 months, has l ack of transportation kept you from medical appts, meetings, work or from getting things needed for daily living? No 06/20/2024 Utilities Answer Date Recorded In the past 12 months, has t he electric, gas, oil or water company threatened to shut off services in your home? No 06/20/2024 Depression Answer Date Recorded Patient Health Questionnaire-2 Score 3 06/20/2024 Internet Access Answer Date Recorded Internet Access Q1 Yes 06/20/2024 Internet Access Q2 Not on file 06/20/2024 Comments No Sex and Gender Information Value Date Recorded Sex Assigned at Female 02/12/2023 8:42 AM EST Legal Sex Female 8:38 AM EST Gender Identity Female 02/12/2023 8:42 AM EST Sexual Orientation Straight 02/12/2023 8: 42 AM EST Last Filed Vital Signs Vital Sign Reading Time Taken Comments Blood Pressure 103/63 06/20/2024 2:25 PM EDT Pulse 84 06/20/2024 2:25 PM EDT Temperature 36.7 ??C (98 ??F) 06/20/2024 2:25 PM EDT Respiratory Rate 20 06/20/2024 2:25 PM EDT Oxygen Saturation 98% 06/20/2024 2:25 PM EDT Inhaled Oxygen Concentration - - Weight 60.5 kg (133 lb 6.4 oz) 07/31/2024 11:23 AM EDT Height 152.4 cm (5') 07/31/2024 11:23 AM EDT Body Mass Index 26.05 07/31/2024 11:23 AM EDT Plan of Treatment Upcoming Encounters Date Type Department Care Team (Late st Contact Info) Description 08/08/2024 10:15 AM EDT Office Visit [facility] MEDICINE [address] [place] [phone] Melissa Garcia, GLORIA [address] [place] [address] 08/22/2024 3:30 PM EDT Clinical Support [facility] DIABETES/NUTRITION [address] [place] [phone] Danica Neumann, BRENDA [address] [place] [address] 08/23/2024 2:00 PM EDT Office Visit [facility] MEDICINE [address] [place] [phone] Marry Cabrera MD [address] [place], [place] [phone] Health Maintenance Due Date Last Done Comments Hepatitis A Vaccines (1 of 2 - Risk 2-dose series) 10/06/2007 COVID-19 Vaccine (2 - 2023-2 5 season) 2023 04/29/2023 Influenza Vaccine (#1) 2023 04/29/2023 Family Planning (PISQ) 11/22/2024 11/23/2023 Alcohol/Substance Use Screening 06/20/2025 06/20/2024 Depression Screening 06/20/2025 06/20/2024, 06/20/2024 Disability Screening 06/20/2025 06/20/2024 SDOH Screening 06/20/2025 06/20/2024 Tobacco Screening 06/20/2025 06/20/2024 HPV/Cotest 05/23/2028 05/24/2023 Pap Smear 05/23/2028 05/24/2023 DTaP/Tdap/Td Vaccines (2 - T d or Tdap) 04/29/2033 04/29/2023 Zoster Vaccines (1 of 2) 2038 RSV Patients and Patients Aged 60 years or older (1 - 1-dose 75+ series) 10/06/2063 HIV Screening Completed 05/24/2023 Hepatitis C Screening Completed 05/24/2023 Hepatitis B Vaccines Completed 12/03/2023, 06/25/2023, 05/28/2023 HPV Vaccines Completed 06/20/2024, 07/07/2023, 06/02/2023 HIB Vaccines Aged Out No longer eligi ble based on patient's age to complete this topic IPV Vaccines Aged Out No longer eligi ble based on patient's age to complete this topic Meningococcal B Vaccine Aged Out No l onger eligible based on patient's age to complete this topic Meningococcal Vaccine Aged Out No yann zoë eligible based on patient's age to complete this topic Pneumococcal Vaccine: Pediatrics (0 to 5 Years) and At-Risk Patients (6 to 49) Years) Aged Out No longer eligible b ased on patient's age to complete this topic RSV under 20 months Aged Out No longe r eligible based on patient's age to complete this topic Rotavirus Vaccines Aged Out No longer eligible based on patient's age to complete this topic Procedures Procedure Name Priority Date/Time Associated Diagnosis Comments BI MAMMOGRAM DIAGNOSTIC TOMOSYNTHESIS BILATERAL Routine 08/01/2024 11:00 AM EDT Mastalgia POCT , URINE Routine 06/20/2024 3:17 PM EDT Mastalgia HPV MRNA E6/E7 REFLEX TO HPV 16, 18/45 Routine 05/24/2023 10:29 AM EDT PAP SMEAR Routine 05/24/2023 10:29 AM EDT Cervical cancer screening HEPATITIS C AB W/REFL TO HCV RNA, QN, PCR Routine 05/24/2023 9:21 AM EDT Annual physical exam HIV 1/2 ANTIGEN/ANTIBODY, FOURTH GENERATION W/RFL Routine 05/24/2023 9:21 AM EDT Annual physical exam from Last 3 Months or Most Recently Relevant to Health Maintenance Results * BI Mammogram Diagnostic Tomosynthesis Bilateral (08/01/2024 11:00 AM EDT) Anatomical Region Laterality Modality Breast Bilateral Mammography 08/01/2024 11:0 0 AM EDT Narrative 08/01/2024 11:53 AM EDT ? [facility] ? [address] ?[place] [address] ?[phone] ? Mammography Report ? Signed ? Patient: Nietos Sorensen,Mis ?MR#: ?? [id number] ? : 1990 ?Acct:[id number] ? Age/Sex: 33 / F ?ADM Date: 08/01/ ? Loc: HO.MAMMO ? Attending Dr: Marry Esteves MD ? Ordering Physician: Marry Cabrera MD ?Re ?? sults: 2Benign Findings ? Date of Service: // ?Follow Up: 1 Year From Orig ?? inal Mammogram ? Procedure(s): MM tomosynthesis diagnostic BI ?? Accession Number(s): [id number] ? cc: Marry Cabrera MD ? EXAMINATION: ?? MM DIAGNOSTIC DIGITAL BREAST TOMOSYNTHESIS, BILATERAL ?? Bilateral Limited ultrasound. ? CLINICAL INFORMATION: ? Bilateral breast pain. ? COMPARISON: ?? Mammography: Comparison is made with relevant prior exams. ? TECHNIQUE: ?? Digital breast mammography with tomosynthesis is performed in both the ?? craniocaudal and mediolateral oblique views along with computer-aided ?? detection (CAD). ? FINDINGS: ?? The breasts are extremely dense, which lowers the sensitivity of ?? mammography (ACR BI-RADS breast composition Category d). ?? [place] markers bilateral upper outer breast at site of pain without ?? underlying abnormality. ?? There are no significant masses, abnormal calcifications, or other ?? abnormalities. ? Targeted color Doppler ultrasound scanning in the right breast area of ?? patient's pain from 6-12 o'clock demonstrates normal fibronodular ?? breast tissue and there is a few simple to minimally complicated cysts: ?? A simple cyst at 11:00 recent meters from the nipple measuring 7 x 7 x ?? 4 mm. ?? There are adjacent subcentimeter cysts which are simple. ? Targeted color Doppler ultrasound ??scanning in the left breast area of ?? patient's pain from 12 6:00 demonstrates normal fibroglandular breast ?? tissue and a simple cyst: ?? A simple cyst at 2:00 8 cm from the nipple measuring 9 x 9 x 4 mm. ? Results are provided to the patient at time of visit by the ?? technologist. ? MM/MM tomosynthesis diagnostic BI ?? IMPRESSION: ?? No definite mammographic or sonographic abnormality to account for the ?? patient's bilateral breast pain. Recommend clinical evaluation and ?? follow-up. ? Bilateral incidental simple cyst on ultrasound. Benign. ? ASSESSMENT: ? BI-RADS BI-RADS 2 - Benign Findings ? RECOMMENDATION: ?? 1. Patient should be managed based on the clinical impression. ?2. ?? Otherwise, routine annual screening mammography. ? Electronically signed by: ??Carmen Pruitt DO ??08/01/2024 11:50 AM EDT ?? RP ? Dictated By: ?Carmen Pruitt DO ? Signed By: ?<Electronically signed by Carmen Pruitt, DO in OV> ? 08/01/24 1150 ? DD/ 1100 ? TD/TT: 08/01/24 1121 ? Hims Manager: ? Procedure Note Donotuseinterpreter, Image - 08/01/2024 [facility] [address] [place] [address] Dr. [place], [place] [id number] Mammography Report Signed Patient: Mis SwansonMR#: [id number] : 1990Acct:[id number] Age/Sex: 33 / FADM Date: 08/01/24 Loc: HO.MAMMO Attending Dr: Marry Esteves MD Ordering Physician: Marry Cabrera sults: 2Benign Findings Date of Service: 08/01/24Follow Up: 1 Year From Orig inal Mammogram Procedure(s): MM tomosynthesis diagnostic BI Accession Number(s): [id number] cc: Marry Cabrera MD EXAMINATION: MM DIAGNOSTIC DIGITAL BREAST TOMOSYNTHESIS, BILATERAL Bilateral Limited ultrasound. CLINICAL INFORMATION: Bilateral breast pain. COMPARISON: Mammography: Comparison is made with relevant prior exams. TECHNIQUE: Digital breast mammography with tomosynthesis is performed in both the craniocaudal and mediolateral oblique views along with computer-aided detection (CAD). FINDINGS: The breasts are extremely dense, which lowers the sensitivity of mammography (ACR BI-RADS breast composition Category d). [place] markers bilateral upper outer breast at site of pain without underlying abnormality. There are no significant masses, abnormal calcifications, or other abnormalities. Targeted color Doppler ultrasound scanning in the right breast area of patient's pain from 6-12 o'clock demonstrates normal fibronodular breast tissue and there is a few simple to minimally complicated cysts: A simple cyst at 11:00 recent meters from the nipple measuring 7 x 7 x 4 mm. There are adjacent subcentimeter cysts which are simple. Targeted color Doppler ultrasound scanning in the left breast area of patient's pain from 12 6:00 demonstrates normal fibroglandular breast tissue and a simple cyst: A simple cyst at 2:00 8 cm from the nipple measuring 9 x 9 x 4 mm. Results are provided to the patient at time of visit by the technologist. MM/MM tomosynthesis diagnostic BI IMPRESSION: No definite mammographic or sonographic abnormality to account for the patient's bilateral breast pain. Recommend clinical evaluation and follow-up. Bilateral incidental simple cyst on ultrasound. Benign. ASSESSMENT: BI-RADS BI-RADS 2 - Benign Findings RECOMMENDATION: 1. Patient should be managed based on the clinical impression. 2. Otherwise, routine annual screening mammography. Electronically signed by: Carmen Pruitt DO 08/01/2024 11:50 AM EDT RP Dictated By: Carmen Pruitt DO Signed By: <Electronically signed by Carmen Pruitt DO in OV> 08/01/24 1150 DD/ 1100 TD/TT: 08/01/24 1121 Hims Manager: Marry Esteves MD IMG BI PROCEDURES Final Result * POCT Urine (06/20/2024 3:17 PM EDT) Preg Test, Ur Negative Negative, Indeterminate, None Detected, Invalid, Specimen unsatisfactory for evaluation, Weakly Positive QC Media Lot # [id number] Lot# Expiration Date [id number] Urine 06/20/2024 3:17 PM EDT Marry Esteves MD POINT OF CARE GARRETT T ENTER/EDIT ORDERABLES Final Result * HPV mRNA E6/E7 w/Reflex to HPV Genotypes 16, 18/45 (05/24/2023 10:29 AM EDT) HPV nRNA E6/E7 Not Detected Not Detected [facility] Comment:Methodology: Transcr iption-Mediated AmplificationThis assay detects E6/E7 viral messenger RNA (mRNA) from 14high-risk HPV types (16,18,31,33,35,39,45,51,52,56,58,59,66,68).Cervical sources are required for HPV testing.If a vaginal source from a patient who has had atotal hysterectomy with removal of cervix wassubmitted, please contact the testing laboratoryfor alternative testing options.For additional information, please refer [email or web address](This link if provided for information/educational purposes only.)THIS TEST WAS PERFORMED AT:[facility] [place] [phone] MATTHEWS MD HPV mRNA E6/E7 TNP [facility] HPV 16 RNA TNP [facility] HPV 18/45 RNA TNP [facility] 05/24/2023 10:2 9 AM EDT 05/25/2023 9:15 AM EDT us Melissa Garcia CNM LAB CYTOLOGY ORDERABLES F inal Result [facility] [address] [place] [phone] * Pap Smear (05/24/2023 10:29 AM EDT) Swab Cervix uteri structure / Unknown 05/24/2023 10:29 AM EDT 05/25/2023 9:15 AM EDT Narrative [facility] - 06/01/2023 9:33 AM EDT ----- ------- Name: Mis Swanson ?Age/Sex: 32/F ? : 1990 Unit#: [id number] ?? Attend Dr: MELISSA GARCIA CNM ?Re05/24/23 ?Status: DEP REF ? Location: HO.HHCLNP ? Disch: ? ----- ------- SPEC : [id number] ? RECD: 05/25/23 ? STATUS: ??SOUT ? REQ NUM: [id number] ? JHONNY: 05/24/23 ? SUBM DR: MELISSA GARCIA CNM ? ENTERED: ??05/25/23 ?SP TYPE: Pap Smr ?OTHR DR: ? ORDERED: ??Pap Smear ? Interpretation ?? Satisfactory for evaluation. ?? No endocervical cells seen. ?? Negative for intraepithelial lesion or malignancy. ?HPV mRNA E6/E7: ?NOT DETECTED ? This assay detects E6/E7 viral messenger RNA (mRNA) from 14 high-risk HPV types (16, 18, ?? 31, 33, 35, 39, 45, 51, 52, 56, 58, 59, 66, 68) ?? HPV testing performed by [facility], [place], [place]. ??See reference laboratory ?? portion of the EMR for entire report. ?Clinical Information LMP: Unknown date Previous PAP test: Unknown date/findings ? Material Received ?? ThinPrep-Vaginal/Cervical ----- ------- Signed (signature on file) MIHIR Angela (ASCP) 06/01/23 0933 ? ----- ------- ? END OF REPORT ? us Melissa Garcia [facility] CYTOLOGY ORDERABLES F inal Result [facility] [address] [place] [phone] * Hepatitis C Antibody with Reflex to HCV, RNA, Quantitative, Real-Time PCR (05/24/2023 9:21 AM EDT) Hepatitis C Antibody Nonreactive Nonreactive [facility] Comment:Antibodies to HCV no t detected; does not exclude early acuteHCV infection. Blood Venous blood specimen / Unknown 05/24/2023 9:21 AM EDT 05/24/2023 11:04 AM EDT us Marry Esteves MD LAB BLOOD ORDERAB LES Final Result Performing Organization Address [facility]/ZIP Co de Phone Number [facility] [address] [place] [phone] * HIV-1/2 Antigen and Antibodies, Fourth Generation, with Reflexes (05/24/2023 9:21 AM EDT) HIV AB/AG Nonreactive Nonreactive [facility] Comment:HIV-1 p24 Ag and/or HIV-1/HIV-2 Ab not detected.A test result that is nonreactive does not exclude thepossibility of exposure to or infection with HIV-1 and/orHIV-2. Nonreactive results in this assay for individualswith prior exposure to HIV-1 and/or HIV-2 may be due toantigen and antibody levels that are below the limit ofdetection of this assay.The Pliz[employer] HIV Ag/Ab Combo assay result andsupplemental assay results should be interpreted inconjunction with the patient's clinical presentation,history and other laboratory results. If the results areinconsistent with clinical evidence, additional testing issuggested to confirm the result. Blood Venous blood specimen / Unknown 05/24/2023 9:21 AM EDT 05/24/2023 11:04 AM EDT us Marry Esteves MD LAB BLOOD ORDERAB LES Final Result Performing Organization Address City/[facility]/ZIP Co de Phone Number [facility] [address] [place] [phone] from Last 3 Months or Most Recently Relevant to Health Maintenance Insurance [employer] Care Teams Portfolio Assistant Relationship Specialty Start Date End Date Marry Cabrera MD [address] [place] [phone] PCP - General Internal Medicine 04/30/23
--- OUTSIDE RECORDS SUMMARY | 2024-08-01 12:10 | XMS_ITS | Encounter Summary ---
Author Organization [employer] Address [address] [place] [address] Care Team Providers Care Rib Knitter Name Role Phone Marry Cabrera MD Primary Care Pro vider Reason for Visit * Consultation (Routine) - Authorized Specialty Diagnoses / Procedures Referred By Contsabina t Referred To Contact Nutrition Diagnoses Overweight (BMI 25.0-29.9) Marry Cabrera MD [address] [place] [address] Phone: tel: fax: Referral ID Status Reason Start Date Expiration Date Visits Requested Visits Authorized [id number] Authorized Specialty Services Required 06/20/2024 06/20/2025 1 1 Encounter Details Date Type Department Care Team ([facility] st Contact Info) Description 07/28/2024 3:00 PM EDT Nutrition [facility] [address] [place] [address] [place] [address] Overweight (BMI 25.0-29.9) Social History Tobacco Use Types Packs/Day Years [...] AM EST documented as of this encounter Last Filed Vital Signs Vital Sign Reading Time Taken Comments Blood Pressure - - Pulse - - Temperature - - Respiratory Rate - - Oxygen Saturation - - Inhaled Oxygen Concentration - - Weight 60.5 kg (133 lb 6.4 oz) 07/31/2024 11:23 AM EDT Height 152.4 cm (5') 07/31/2024 11:23 AM EDT Body Mass Index 26.05 07/31/2024 11:23 AM EDT documented in this encounter Progress Notes * Danica Neumann RD - 07/28/2024 3:00 PM EDT In Person Visit Medical Diagnosis: E66.3 Overweight Anthropometrics: Ht:5' (1.524 m), Wt:133 lb 6.4 oz (60.5 kg), BMI: Body mass index is 26.05 kg/m??. Assessment: Patient (Pt) accepted nutrition education assessment appointment with BRENDA. RD took Pt's weight. Quantance ball thread machine tender, [place] [id number] took 24 hour recall/ typical daily intake from Pt. Intake revealed Pt's diet is high in carbohydrates and meals outside the house are with sugary beverages. Diet is also low in protein, fresh and cooked vegetables for about 4 days per week. Fruit is not eaten if at all. Healthy fats, whole grains and fiber are low in diet as well. Note: Pt enjoys a hot chocolate in the morning and if not hot chocolate, a coffee is drank. (Pt informed RD that constipation is a Huge issue for her.) Today, Pt only did the first half of First appointment. Once the second half of First appointment is finished, RD will fill in nutrition diagnosis, nutrition Intervention, goals, Tailored made meal plan, monitoring and evaluation will be put into Pt's chart here. Thus, all is to be followed by Pt with their agreement. The second half of First nutrition education assessment appointment is scheduled in the second weekof August 2024. Until then, RD made a suggestion. Pt agreed to work on suggestion before next appointment with RD. They are: Get Nature Made Magnesium Citrate; RD suggest for Pt to take two capsules at evening/ bedtime- to help relax and ease constipation. Food Allergies: NKFA Exercise: Pt works a lot and her job is physical and she is moving all the time. Food Intolerance: Didn't say Food Preferences: Hot chocolate, coffee, milk, sweet rolls, toast, eggs, margarine, chicken, pork, beef, tuna, pepperoni, hamburgers, cheeses, dumas, lettuce, tomatoes, onions, carrots, lemon, pizza, Coke regular, breads, rice, beans, rice soup, salads, bananas Food Dislikes: Didn't say Frequency of Eating Out/ Restaurant: 1-2 x weekly Who Cooks?: Family Member How much caffeine?: coffee 1 cup /day and 1+ cup of hot chocolate and soda one 12 oz. 2-3 x's per week How much sugary beverages?: Hot chocolate and Coke when eating outside of the house. Diet History: Breakfast: Sweet roll: 2 Hot chocolate: one cup Or Coffee: 1/4 cup Milk: 3/4 cup Snack: none Lunch: Rice: 1/2 cup Beans: 1 cup Meat (chicken or pork or beef): 4+ oz. Water: 1-2+ cups Snack: None Water: ~1 cup Dinner: Bread: 2 slices Tuna: 2-3 oz. Can Lettuce: 1/4 cup Tomato: 1/2 cup Water: 1-2 cups Snack: None Water: ~ 1/2 cup Nutrition Diagnosis: 1st half of First appointment was done today. When the 2nd half of First appointment is finished/ done, this area will be filled in. Nutrition Intervention: 1st half of First appointment was done today. When the 2nd half of First appointment is finished/ done, this area will be filled in. Monitoring and Evaluation: 1st half of First appointment was done today. When the 2nd half of First appointment is finished/ done, this area will be filled in. Provider: Danica Neumann RD, LDN documented in this encounter Plan of Treatment Upcoming Encounters Date Type Department Care Team (Late st Contact Info) Description 08/08/2024 10:15 AM EDT Office Visit [facility] [address] [place] [phone] Melissa Melchor CNM [address] [place] [address] 08/22/2024 3:30 PM EDT Clinical Support [facility] [address] [place] [phone] [place] [phone] 08/23/2024 2:00 PM EDT Office Visit [facility] [address] [place] [address] [phone] Marry Cabrera MD [address], [place] [phone] documented as of this encounter Visit Diagnoses Diagnosis Overweight (BMI 25.0-29.9) Overweight documented in this encounter Additional Health Concerns Assessment Noted Time PHQ-9 Depression Total Score: 11 025 2:29 PM EDT documented as of this encounter Care Teams Rib Knitter Relationship Specialty Start Date End Date Marry Cabrera MD [address] [place] [phone] PCP - General Internal Medicine 04/30/23 documented as of this encounter
--- OUTSIDE RECORDS SUMMARY | 2024-08-01 12:10 | XMS_ITS | Encounter Summary ---
Author Organization [employer] Address [address] [facility] [address] [place] [address] Care Team Providers Care Plywood And Veneer Repairer Name Role Phone Marry Cabrera MD Primary Care Pro vider Encounter Details Date Type Department Care Team (Latest Contact Info) Description 07/28/2024 Travel Social History Tobacco Use Types Packs/Day Years [...] Description 08/08/2024 10:15 AM EDT Office Visit [facility] [address] [place] [address] Melissa Melchor CNM [address] [place] [address] 08/22/2024 3:30 PM EDT Clinical Support [facility] [address] [place] [address] [place] [address] 08/23/2024 2:00 PM EDT Office Visit [facility] [address] [place] [phone] Marry Cabrera MD [address] [place] [phone] documented as of this encounter Visit Diagnoses Not on filedocumented in this encounter Additional Health Concerns Assessment Noted Time PHQ-9 Depression Total Score: 11 025 2:29 PM EDT documented as of this encounter Care Teams Plywood And Veneer Repairer Relationship Specialty Start Date End Date Marry Cabrera MD [address] [place], [place] [phone] PCP - General Internal Medicine 04/30/23 documented as of this encounter
== END 2024-08-01 10:55 | disposition home or self-care (01) ==
LOC: HO.MAMMO 10:54
PROVIDERS: PCP Student in an Organized Health Care Education/Training Program; Visit Provider Student in an Organized Health Care Education/Training Program
DX: N64.4 Mastodynia (principal)
CPT/HCPCS: 76642; 77062; 77066

== ENCOUNTER → 2024-08-01 11:00 | Outpatient (BNV) | payer SELFPAY | PROVIDERS: PCP Student in an Organized Health Care Education/Training Program; Visit Provider Internal Medicine | DX: N60.01 Solitary cyst of right breast (principal); N60.02 Solitary cyst of left breast; N64.4 Mastodynia | CPT/HCPCS: 76642; 77062; 77066 ==

== ENCOUNTER 2024-08-14 10:58 | Outpatient (REF) | payer MEDICAID, OTHER, SELFPAY ==
--- OUTSIDE RECORDS SUMMARY | 2024-08-14 12:12 | XMS_ITS | Clinical Summary ---
Author Organization [employer] Address [address] [facility] [address] [place] [address] Care Team Providers Care Service Provider Name Role Phone Marry Cabrera MD Primary [...] per day. 30 tablet 2 5 Active medroxyPROGESTE Cam (Depo-Provera) 150 MG/ML injection Inject 1 mL (150 mg) into the muscle every 3 (three) months. 1 mL 3 5 Active acyclovir (Zovirax) 800 MG tablet Take 1 tablet (800 mg) by mouth 3 times daily. 6 tablet 10 5 07/21/19 25 Hospital, Clinic, or Other Facility Administered Medication Ordered Dose Route Frequency Start Date End Date Status medroxyPROGESTERone (Depo-Provera) injection 150 mgIndications:Family planning counseling 150 mg IM Once 08/08/2024 08/08/2024 Ended Active Problems Problem Noted Date Diagnosed Date [...] organization. Date Type Department Care Team Description 08/08/2024 10:15 AM EDT Office Visit [facility] [place] [address] Kate Garcia CNM Family planning counseling (Primary Dx) 08/08/2024 Travel 08/04/2024 Telephone [facility] [place] [address] Marry Cabrera MD Chart Prep 08/01/2024 Results Follow-Up [facility] [place] [address] Marry Cabrera MD BI Mammogram Diagnostic Tomosynthesis Bilateral 07/28/2024 3:00 PM EDT Nutrition [facility] [place] [address] Overweight (BMI 25.0-29.9) 07/28/2024 Travel 07/06/2024 Orders Only [facility] [place] [address] Marry Cabrera MD Mastalgia (Primary Dx) 06/20/2024 2:30 PM EDT Office Visit [facility] [place] [address] Marry Cabrera MD Overweight (BMI 25.0-29.9) (Primary Dx); Dietary counseling; Exercise counseling; Mastalgia; Annual physical exam; Recurrent genital herpes; Health care maintenance; Skin rash 06/20/2024 Travel 06/09/2024 Patient Outreach [facility] [place] [address] Marry Cabrera MD Pre-visit Planning (Pre-visit planning - LVM ) 06/08/2024 Telephone [facility] [place] [address] Marry Cabrera MD chart prep 06/01/2024 Telephone [facility] [address] [place] [address] Marry Cabrera MD Nurse Triage from Last [...] Q2 Not on file 06/20/2024 Comments No Intention Date Recorded No desire to become (finding) 0 08/08/2024 Sex and Gender Information Value Date Recorded Sex Assigned at Female 02/12/2023 8:42 AM EST Legal Sex Female 8:38 AM EST Gender Identity Female 02/12/2023 8:42 AM EST Sexual Orientation Straight 02/12/2023 8: 42 AM EST Last Filed Vital Signs Vital Sign Reading Time Taken Comments Blood Pressure 110/62 08/08/2024 10:04 AM EDT Pulse 85 08/08/2024 10:04 AM EDT Temperature 36.7 ??C (98 ??F) 08/08/2024 10:04 AM EDT Respiratory Rate 20 08/08/2024 10:04 AM EDT Oxygen Saturation 98% 08/08/2024 10:04 AM EDT Inhaled Oxygen Concentration - - Weight 60.3 kg (133 lb) 08/08/2024 10:04 AM EDT Height 152.4 cm (5') 07/31/2024 11:23 AM EDT Body Mass Index 25.97 07/31/2024 11:23 AM EDT Plan of Treatment Upcoming Encounters Date Type Department Care Team (Late st Contact Info) Description 08/22/2024 3:30 PM EDT Clinical Support [facility] [address] [place] [phone] Danica Neumann, BRENDA [address] [place] [address] 08/23/2024 2:00 PM EDT Office Visit [facility] [address] [place] [address] [phone] Marry Cabrera MD [address] [place] [address] 10/24/2024 10:30 AM EDT Clinical Support [facility] [address] [place] [address] Health Maintenance Due Date Last Done Comments Hepatitis A Vaccines (1 of 2 - Risk 2-dose series) 10/06/2007 COVID-19 Vaccine (2 - 2023-2 5 season) 2023 04/29/2023 Influenza Vaccine (Season Ended) 2024 04/29/2023 Depression Monitoring 12/20/2024 06/20/2024 , 06/20/2024 Alcohol/Substance Use Screening 06/20/2025 06/20/2024 Disability Screening 06/20/2025 06/20/2024 SDOH Screening 06/20/2025 06/20/2024 Family Planning (PISQ) 08/08/2025 08/08/2024 Tobacco Screening 08/08/2025 08/08/2024 HPV/Cotest 05/23/2028 05/24/2023 Pap Smear 05/23/2028 05/24/2023 [...] Procedure Name Priority Date/Time Associated Diagnosis Comments POCT , URINE Routine 08/08/2024 11:07 AM EDT Family planning counseling BI US BREAST LIMITED BILATERAL Routine 08/01/2024 11:30 AM EDT Mastalgia BI MAMMOGRAM DIAGNOSTIC TOMOSYNTHESIS BILATERAL Routine 08/01/2024 [...] Recently Relevant to Health Maintenance Results * POCT , urine manually resulted (08/08/2024 11:07 AM EDT) Only the most recent of2 resultswithin the time period is included. Preg Test, Ur Negative Negative, Indeterminate, None Detected, Invalid, Specimen unsatisfactory for evaluation, Weakly Positive, 2+ QC Media Lot # [id number] Lot# Expiration Date [id number] Urine 08/08/2024 11:0 7 AM EDT Kate Garcia CNM POINT OF CARE TEST ENTER/ EDIT ORDERABLES Final Result * BI US Breast Limited Bilateral (08/01/2024 11:30 AM EDT) Anatomical Region Laterality Modality Breast Bilateral Ultrasound 08/01/2024 11:3 0 AM EDT Narrative 08/14/2024 11:55 AM EDT ? [facility] ? [address] [place] [address] ? Ultrasound Report ? Signed ? Patient: Nietos Sorensen,Mis ?MR#: ?? [id number] ? : 1990 ?Acct:[id number] ? Age/Sex: 33 / F ?ADM Date: 08/01/24 ? Loc: HO.MAMMO ? Attending Dr: Marry Esteves MD ? Ordering Physician: Marry Cabrera MD ?? Date of Service: 08/01/24 ?? Procedure(s): US breast BI limited mamm only ?? Accession Number(s): [id number] ? cc: Marry Cabrera MD ? EXAMINATION: [...] (ACR BI-RADS breast composition Category d). ?? [place] markers bilateral upper outer breast at site [...] of visit by the ?? technologist. ? US/US breast BI limited mamm only ?? IMPRESSION: ?? No definite mammographic or [...] ??Carmen Pruitt DO ??08/01/2024 11:50 AM EDT ? Dictated By: ?Carmen Pruitt DO ? Signed By: ?<Electronically signed by Carmen Pruitt, DO in OV> ? 08/01/24 1150 ? DD/ 1130 ? TD/TT: 08/01/24 1205 ? Veneer Cutter: ? Procedure Note Hector, Image - 08/14/2024 [facility] [address] [place] [address] Ultrasound Report Signed Patient: Mis SwansonMR#: [id number] : 1990Acct:[id number] Age/Sex: 33 / FADM Date: 08/01/24 Loc: HO.MAMMO Attending Dr: Marry Esteves MD Ordering Physician: Marry Cabrera MD Date of Service: 08/01/24 Procedure(s): US breast BI limited mamm only Accession Number(s): [id number] cc: Marry Cabrera MD EXAMINATION: MM DIAGNOSTIC [...] mammography (ACR BI-RADS breast composition Category d). [place] markers bilateral upper outer breast at site [...] at time of visit by the technologist. US/US breast BI limited mamm only IMPRESSION: No definite mammographic or sonographic abnormality to account for the patient's bilateral breast pain. Recommend clinical evaluation and follow-up. Bilateral incidental simple cyst on ultrasound. Benign. ASSESSMENT: BI-RADS BI-RADS 2 - Benign Findings RECOMMENDATION: 1. Patient should be managed based on the clinical impression. 2. Otherwise, routine annual screening mammography. Electronically signed by: Carmen Pruitt DO 08/01/2024 11:50 AM EDT Dictated By: Carmen Pruitt DO Signed By: <Electronically signed by Carmen Pruitt DO in OV> 08/01/24 1150 DD/ 1130 TD/TT: 08/01/24 1205 Veneer Cutter: us Marry Esteves MD [facility] US PROCEDURES Edited Result - Final * BI Mammogram Diagnostic Tomosynthesis Bilateral (08/01/2024 11:00 AM EDT) Anatomical Region Laterality Modality Breast Bilateral Mammography 08/01/2024 11:0 0 AM EDT Narrative 08/01/2024 11:53 AM EDT ? [facility] ? [address] ?[place] [address] ?[phone] ? Mammography Report ? Signed ? Patient: Nietos Sorensen,Mis ?MR#: ?? [id number] ? : 1990 ?Acct:[id number] ? Age/Sex: 33 / F ?ADM Date: 05/20/25 ? Loc: HO.MAMMO ? Attending Dr: Marry Esteves MD ? Ordering Physician: Marry Cabrera MD ?Re ?? sults: 2Benign Findings ? Date of Service: 08/01/24 ?Follow Up: 1 Year From Orig ?? inal Mammogram ? Procedure(s): MM tomosynthesis diagnostic BI ?? Accession Number(s): [id number] ? cc: Marry Cabrera MD ? EXAMINATION: [...] (ACR BI-RADS breast composition Category d). ?? [place] markers bilateral upper outer breast at site [...] ??Carmen Pruitt DO ??08/01/2024 11:50 AM EDT ? Dictated By: ?Carmen Pruitt DO ? Signed By: ?<Electronically signed by Carmen Pruitt, DO in OV> ? 08/01/24 1150 ? DD/ 1100 ? TD/TT: 08/01/24 1121 ? Veneer Cutter: ? Procedure Note Bibiter, Image - 08/14/2024 [facility] [address] [place] [address] [place] [address] Mammography Report Signed Patient: Reymundo Swanson#: [id number] : 1990Acct:[id number] Age/Sex: 33 / FADM Date: 08/01/24 Loc: HOEdiliaMAMMO Attending Dr: Marry Esteves MD Ordering Physician: Schulte Danielito,Dianelys MDRe sults: 2Benign Findings Date of Service: 08/01/24Follow Up: 1 Year From Orig inal Mammogram Procedure(s): MM tomosynthesis diagnostic BI Accession Number(s): [id number] cc: Marry Cabrera MD EXAMINATION: MM DIAGNOSTIC [...] mammography (ACR BI-RADS breast composition Category d). [place] markers bilateral upper outer breast at site [...] Carmen Pruitt DO 08/01/2024 11:50 AM EDT Dictated By: Carmen Pruitt DO Signed By: <Electronically signed by Carmen Pruitt DO in OV> 08/01/24 1150 DD/ 1100 TD/TT: 08/01/24 1121 Veneer Cutter: us Marry Esteves MD IMG BI PROCEDURES Edited Result - Final * HPV mRNA E6/E7 w/Reflex to HPV Genotypes 16, 18/45 (05/24/2023 10:29 AM EDT) HPV nRNA E6/E7 Not Detected Not Detected [facility] Comment:Methodology: Transcr iption-Mediated AmplificationThis assay detects E6/E7 viral messenger RNA (mRNA) from 14high-risk HPV types (16,18,31,33,35,39,45,51,52,56,58,59,66,68).Cervical sources are required for HPV testing.If a vaginal source from a patient who has had atotal hysterectomy with removal of cervix wassubmitted, please contact the testing laboratoryfor alternative testing options.For additional information, please refer tohttp://education.[employer]/faq/XEF068v9(This link if provided for information/educational purposes only.)THIS TEST WAS PERFORMED AT:[facility] [place] [phone] MATTHEWS MD HPV mRNA E6/E7 [facility] HPV 16 RNA [facility] HPV 18/45 RNA [facility] 05/24/2023 10:2 9 AM EDT 05/25/2023 9:15 AM EDT us Kate Garcia [facility] CYTOLOGY ORDERABLES F inal Result [facility] [address] [place], [place] [phone] * Pap Smear (05/24/2023 10:29 AM EDT) Swab Cervix uteri structure / Unknown 05/24/2023 10:29 AM EDT 05/25/2023 9:15 AM EDT Narrative [facility] - 06/01/2023 9:33 AM EDT ----- ------- Name: Prashant SorensenMis ?Age/Sex: 32/F ? : 1990 Unit#: [id number] ?? Attend Dr: KATE GARCIA CNM ?Re05/24/23 ?Status: DEP REF ? [facility] ? Disch: ? ----- ------- SPEC : [id number] ? RECD: 05/25/23 ? STATUS: ??SOUT ? REQ NUM: [id number] ? JHONNY: 05/24/23-9 ? SUBM DR: KATE GARCIA CNM ? ENTERED: ??05/25/23-1301 ?SP TYPE: Pap Smr ?OTHR : ? ORDERED: ??Pap Smear ? Interpretation ?? Satisfactory for evaluation. ?? No endocervical cells seen. ?? Negative for intraepithelial lesion or malignancy. ?HPV mRNA E6/E7: ?NOT DETECTED ? This assay detects E6/E7 viral messenger RNA (mRNA) from 14 high-risk HPV types (16, 18, ?? 31, 33, 35, 39, 45, 51, 52, 56, 58, 59, 66, 68) ?? HPV testing performed by [facility], [place], [place]. ??See reference laboratory ?? portion of the EMR for entire report. ?Clinical Information LMP: Unknown date Previous PAP test: Unknown date/findings ? Material Received ?? ThinPrep-Vaginal/Cervical ----- ------- Signed (signature on file) MIHIR Angela (ASCP) 06/01/23 0933 ? ----- ------- ? END OF REPORT ? us Kate Garcia [facility] CYTOLOGY ORDERABLES F inal Result Performing Organization Address [facility]/ZIP Co de Phone Number [facility] [address] [place] [address] [phone] * Hepatitis C Antibody with Reflex to HCV, RNA, Quantitative, Real-Time PCR (05/24/2023 9:21 AM EDT) Hepatitis C Antibody Nonreactive Nonreactive [facility] Comment:Antibodies to HCV no t detected; does not exclude early acuteHCV infection. Blood Venous blood specimen / Unknown 05/24/2023 9:21 AM EDT 05/24/2023 11:04 AM EDT us Marry Esteves MD LAB BLOOD ORDERAB LES Final Result Performing Organization Address [facility]/ZIP Co de Phone Number [facility] [address] [place] [address] [phone] * HIV-1/2 Antigen and Antibodies, Fourth Generation, with Reflexes (05/24/2023 9:21 AM EDT) HIV AB/AG Nonreactive Nonreactive [facility] Comment:HIV-1 p24 Ag and/or HIV-1/HIV-2 Ab not detected.A test result that is nonreactive does not exclude thepossibility of exposure to or infection with HIV-1 and/orHIV-2. Nonreactive results in this assay for individualswith prior exposure to HIV-1 and/or HIV-2 may be due toantigen and antibody levels that are below the limit ofdetection of this assay.The [employer].co HIV Ag/Ab Combo assay result andsupplemental assay results should be interpreted inconjunction with the patient's clinical presentation,history and other laboratory results. If the results areinconsistent with clinical evidence, additional testing issuggested to confirm the result. Blood Venous blood specimen / Unknown 05/24/2023 9:21 AM EDT 05/24/2023 11:04 AM EDT Marry Esteves MD LAB BLOOD ORDERAB LES Final Result [facility] [address] [place], [place] [phone] from Last 3 Months or Most Recently Relevant to Health Maintenance Insurance [facility] Care Teams Service Provider Relationship Specialty Start Date End Date Marry Cabrera MD [address] [place] [address] [phone] PCP - General Internal Medicine 04/30/23
[2024-08-14 13:22] LABS: Hematocrit 39.5 % (37.0-47.0); Hemoglobin 13.6 g/dl (12.0-16.0); Mean Corpuscular HGB Conc 34.4 g/dl (31.0-35.0); Mean Corpuscular Hemoglobin 30.4 pg (27.0-33.0); Mean Corpuscular Volume 88.4 fL (80.0-98.0); Mean Platelet Volume 10.1 fL (9.4-12.3); Platelet Count 249 X10*3/uL (160-400); Red Blood Count 4.47 X10*6/uL (4.20-5.50); Red Cell Distribution Width 12.8 % (11.0-16.0); White Blood Count 4.5 X10*3/uL (4.8-10.8)
[2024-08-14 13:27] LABS: Estimated Average Glucose 94 mg/dL; Hemoglobin A1c % 4.9 % (<6.0)
[2024-08-14 13:54] LABS: Alanine Aminotransferase 13 U/L (0-31); Albumin Level 4.5 g/dL (3.5-5.0); Alkaline Phosphatase 67 U/L (39-117); Anion Gap 12 (12-20); Aspartate Amino Transferase 21 U/L (5-31); Bilirubin Total 0.5 mg/dL (0.0-1.0); Blood Urea Nitrogen 8 mg/dL (9-16); Carbon Dioxide 23 mmol/L (22-29); Chloride 110 mmol/L (96-108); Cholesterol 176 mg/dL (<200); Estimated Glomerular Filt Rate > 60; Glucose Random 85 mg/dL (60-115); HDL Cholesterol 46 mg/dL (>40); LDL Cholesterol Calculated 113 mg/dL (<100); Potassium 3.9 mmol/L (3.3-5.1); Sodium 141 mmol/L (135-145); Total Protein 7.2 g/dL (6.5-8.0); Triglycerides 87 mg/dL (<150)
[2024-08-15 08:30] LABS: HBsAGNum1 0.35 S/CO (0.00-0.99); HIV AB/AG Nonreactive (Nonreactive); HIV Num 1 0.05 S/CO (0.00-0.99); Hepatitis B Surface Antigen Negative (Negative); ~HepC Num1 0.15 S/CO (0.00-0.79); ~Hepatitis C Antibody Nonreactive (Nonreactive)
[2024-08-15 08:33] LABS: Syphilis Screen Nonreactive (Nonreactive)
== END 2024-08-14 10:59 | disposition home or self-care (01) ==
LOC: HO.HHCL 10:58
PROVIDERS: Visit Provider Student in an Organized Health Care Education/Training Program
DX: Z00.00 Encounter for general adult medical examination without abnormal findings (principal); Z11.4 Encounter for screening for human immunodeficiency virus [HIV]; Z13.1 Encounter for screening for diabetes mellitus; Z11.59 Encounter for screening for other viral diseases; Z13.220 Encounter for screening for lipoid disorders; Z11.3 Encounter for screening for infections with a predominantly sexual mode of transmission; Z13.29 Encounter for screening for other suspected endocrine disorder
CPT/HCPCS: 36415; 80053; 80061; 83036; 84443; 85027; 86780; 86803; 87340; 87389

== ENCOUNTER 2024-09-08 08:23 | Outpatient (REF) | payer MEDICAID, OTHER, SELFPAY ==
--- NOTE | ~2024-09-08 | US_ITS ---
EXAMINATION: US LOWER EXTREMITY VENOUS (REFLUX EXAM), LEFT LOWER EXTREMITY CLINICAL INFORMATION: Concerning venous insufficiency. COMPARISON: None. TECHNIQUE: Color flow triplex imaging and compression Doppler was performed to evaluate both the deep and the superficial systems left lower extremity. To evaluate the superficial system, the examination was performed in the upright position. Color-flow Doppler ultrasound and compression ultrasound were utilized. In addition, maneuvers were utilized to demonstrate reflux. FINDINGS: 1. DEEP VENOUS ULTRASOUND OF THE LEFT LOWER EXTREMITY: Common Femoral Vein: Compressible, normal respiratory variation and augmented flow. Femoral Vein: Compressible, normal color flow and augmentation. Popliteal Vein: Compressible, normal augmentation. Deep Reflux: There is no evidence of reflux in the deep system in either the common femoral vein, superficial femoral or the popliteal vein. There is no evidence of a Nelson's cyst. 2. SUPERFICIAL ULTRASOUND WITH DOPPLER OF LEFT LOWER EXTREMITY: GREAT SAPHENOUS VEIN: Saphenofemoral Junction: 1.0 cm; Reflux: 0 ms Proximal Thigh: 0.3 cm; Reflux: 0 ms Mid Thigh: 0.3 cm; Reflux: 0 ms Distal Thigh: 0.3 cm; Reflux: 0 ms At Knee: 0.3 cm; Reflux: 0 ms Proximal Calf: 0.2 cm; Reflux: 0 ms Mid Calf: 0.2 cm; Reflux: 0 ms Distal Calf: 0.2 cm; Reflux: 0 ms DUPLICATED MEDIAL GREAT SAPHENOUS VEIN: Diameter: 0.3 cm. Reflux: NA DUPLICATED LATERAL GREAT SAPHENOUS VEIN: Diameter: None imaged. Reflux: NA SMALL SAPHENOUS VEIN: Saphenopopliteal Junction: 0.4 cm; Reflux: 0 ms Proximal: 0.1 cm; Reflux: 0 ms Distal: 0.1 cm; Reflux: 0 ms VEIN OF GIACOMINI: Size: NA Reflux: NA PERFORATORS: Location: Small saphenous vein mid segment. Great saphenous vein proximal calf. Size: 0.2 cm. Reflux: NA VARICOSITIES: Location: None Imaged Size: NA Reflux: NA US/US venous duplex LE LT IMPRESSION: Left: No venous insufficiency. No varices. Perforators without reflux. Electronically signed by: Frank Velazquez MD 09/08/2024 09:42 AM EDT
--- OUTSIDE RECORDS SUMMARY | 2024-09-08 08:33 | XMS_ITS | Clinical Summary ---
Author Organization [employer] Address [address] [facility] [address] [place] [address] Care Team Providers Care Bike Mechanic Name Role Phone Marry Cabrera MD Primary Care Pro vider Allergies No known active allergies Medications * This document contains information received from the source organization and may not represent a complete record from that organization. metroNIDAZOLE (Metrogel) 0.75 % gelIndications: Rosacea Apply topically 2 times daily. 45 g 3 5 03/24/19 26 Active melatonin 5 MG tablet Take 1 tablet (5 mg) by mouth Once per day. 30 tablet 2 5 Active medroxyPROGESTE Cam (Depo-Provera) 150 MG/ML injection Inject 1 mL (150 mg) into the muscle every 3 (three) months. 1 mL 3 5 Active famotidine (Pepcid) 20 MG tabletIndicatio ns:Gastritis without bleeding, unspecified chronicity, unspecified gastritis type Take 1 tablet (20 mg) by mouth at bedtime. 30 tablet 1 5 08/24/19 26 Active ammonium lactate (Amlactin) 12 % cream Apply topically if needed for dry skin. 140 g 1 5 08/24/19 25 Discontinu ed(Other) Active Problems Problem Noted Date Diagnosed Date Left buttock pain 08/23/2024 Gastritis 08/23/2024 Adjustment disorder with mixed anxiety and depre ssed mood 06/21/2024 Recurrent genital herpes 05/28/2023 Vertigo 05/28/2023 Health care maintenance 05/02/2023 Lower urinary tract symptoms (LUTS) 05/02/2023 Insomnia 05/02/2023 Skin rash 05/02/2023 Chronic pelvic pain in female 05/02/2023 Resolved Problems Problem Noted Date Diagnosed Date Resolved Date Mastalgia 06/21/2024 08/23/2024 Pruritus 08/18/2023 06/21/2024 Encounters * This document contains information received from the source organization and may not represent a complete record from that organization. Date Type Department Care Team Description 08/23/2024 2:00 PM EDT Office Visit [facility] [place] [facility] [place] [address] Marry Cabrera MD Gastritis without bleeding, unspecified chronicity, unspecified gastritis type (Primary Dx); Left leg pain; Left buttock pain; Health care maintenance; Recurrent genital herpes; Skin rash 08/23/2024 Travel 08/22/2024 Telephone [facility] [place] [address] Marry Cabrera MD CHART PREP 08/08/2024 10:15 AM EDT Office Visit [facility] [place] [address] Kate Garcia CNM Family planning counseling (Primary Dx) 08/08/2024 Travel 08/04/2024 Telephone [facility] [place] [address] Marry Cabrera MD Chart Prep 08/01/2024 Results Follow-Up [facility] [place] [address] Marry Cabrera MD BI Mammogram Diagnostic Tomosynthesis Bilateral, POCT Urine , CBC, Additional followed-up results: 4 07/28/2024 3:00 PM EDT Nutrition [facility] DIABETES/NUTRITION [facility] [place] [address] Overweight (BMI 25.0-29.9) 07/28/2024 Travel 07/06/2024 Orders Only [facility] [place] [address] Marry Cabrera MD Mastalgia (Primary Dx) 06/20/2024 2:30 PM EDT Office Visit [facility] [address] [place] [address] Marry Cabrera MD Overweight (BMI 25.0-29.9) (Primary Dx); Dietary counseling; Exercise counseling; Mastalgia; Annual physical exam; Recurrent genital herpes; Health care maintenance; Skin rash 06/20/2024 Travel 06/09/2024 Patient Outreach [facility] MEDICINE [address] [place] [address] Marry Cabrera MD Pre-visit Planning (Pre-visit planning - LVM ) 06/08/2024 Telephone [facility] MEDICINE [address] [place] [address] Marry Cabrera MD chart prep from Last 3 Months Immunizations Immunization Administration [...] Sign Reading Time Taken Comments Blood Pressure 130/66 08/23/2024 2:03 PM EDT Pulse 88 08/23/2024 2:03 PM EDT Temperature 36.3 C (97.3 F) 08/23/2024 2:03 PM EDT Respiratory Rate 20 08/23/2024 2:03 PM EDT Oxygen Saturation 98% 08/08/2024 10:04 AM EDT Inhaled Oxygen Concentration - - Weight 59 kg (130 lb) 08/23/2024 2:03 PM EDT Height 152.4 cm (5') 08/23/2024 2:03 PM EDT Body Mass Index 25.39 08/23/2024 2:03 PM EDT Plan of Treatment Upcoming Encounters Date Type Department Care Team (Late st Contact Info) Description 10/24/2024 10:30 AM EDT Clinical Support [facility] MEDICINE [address] [place] [phone] 10/27/2024 1:30 PM EDT Office Visit [facility] MEDICINE [address] [place] [phone] Marry Cabrera MD [address] [place] [address] Health Maintenance Due Date Last Done Comments COVID-19 Vaccine (2023-2 5 season) 2023 04/29/2023 Influenza Vaccine (Season Ended) 2024 04/29/2023 Depression Monitoring 12/20/2024 06/20/2024 , 06/20/2024 Alcohol/Substance Use Screening 06/20/2025 06/20/2024 Disability Screening 06/20/2025 06/20/2024 SDOH Screening 06/20/2025 06/20/2024 Family Planning (PISQ) 08/08/2025 08/08/2024 Tobacco Screening 08/23/2025 08/23/2024 Cervical Cancer Screening 05/23/2028 HPV/Cotest 05/23/2028 05/24/2023 Pap Smear 05/23/2028 05/24/2023 DTaP/Tdap/Td Vaccines (2 - T d or Tdap) 04/29/2033 04/29/2023 Zoster Vaccines (1 of 2) 2038 RSV Patients and Patients Aged 60 years or older (1 - 1-dose 75+ series) 10/06/2063 Hepatitis B Vaccines Completed 12/03/2023, 06/25/2023, 05/28/2023 HPV Vaccines Completed 06/20/2024, 07/07/2023, 06/02/2023 HIV Screening Completed 08/14/2024, 05/24/2023 Hepatitis C Screening Completed 08/14/2024 , 05/24/2023 HIB Vaccines Aged Out No longer eligi ble based on patient's age to complete this topic Hepatitis A Vaccines Aged Out No long er eligible based on patient's age to complete [...] Years) and At-Risk Patients (6 to 49) Years Aged Out No longer eligible b ased on patient's age to complete this topic RSV under 20 months Aged Out No longe r eligible based on patient's age to complete this topic Rotavirus Vaccines Aged Out No longer eligible based on patient's age to complete this topic Procedures Procedure Name Priority Date/Time Associated Diagnosis Comments TSH W/REFLEX TO FT4 Routine 08/14/2024 1 1:02 AM EDT Annual physical exam SYPHILIS SCREEN Routine 08/14/2024 11:02 AM EDT Annual physical exam LIPID PANEL, STANDARD Routine 08/14/2024 11:02 AM EDT Annual physical exam HIV 1/2 ANTIGEN/ANTIBODY, FOURTH GENERATION W/RFL Routine 08/14/2024 11:02 AM EDT Annual physical exam HEPATITIS C AB W/REFL TO HCV RNA, QN, PCR Routine 08/14/2024 11:02 AM EDT Annual physical exam HEPATITIS B SURFACE ANTIGEN, EIA Routine 08/14/2024 11:02 AM EDT Annual physical exam HEMOGLOBIN A1C Routine 08/14/2024 11:02 AM EDT Annual physical exam COMPREHENSIVE METABOLIC PANEL Routine 08/14/2024 11:02 AM EDT Annual physical exam CBC Routine 08/14/2024 11:02 AM EDT Annual physical exam POCT , URINE Routine 08/08/2024 11:07 AM [...] 05/24/2023 10:29 AM EDT Cervical cancer screening from Last 3 Months or Most Recently Relevant to Health Maintenance Results * Syphilis Screen (08/14/2024 11:02 AM EDT) Syphilis Screen Nonreactive Nonreactive [facility] Blood 08/14/2024 11:0 2 AM EDT 08/14/2024 1:01 PM EDT us Marry Esteves MD LAB BLOOD ORDERAB LES Final Result Performing Organization Address [facility] Co de Phone Number [facility] [address] [place] [phone] * TSH with Reflex to Free T4 (08/14/2024 11:02 AM EDT) Pathologist [facility] TSH reflex Free T4 1.40 0.32 - 4.0 uIU/mL [facility] Blood 08/14/2024 11:0 2 AM EDT 08/14/2024 1:01 PM EDT us Marry Esteves MD LAB BLOOD ORDERAB LES Final Result Performing Organization Address [facility] Co de Phone Number [facility] [address] [place] [phone] * Hepatitis C Antibody with Reflex to HCV, RNA, Quantitative, Real-Time PCR (08/14/2024 11:02 AM EDT) Pathologist [facility] Hepatitis C Antibody Nonreactive Nonreactive [facility] Comment:Antibodies to HCV no t detected; does not exclude early acuteHCV infection. Blood Venous blood specimen / Unknown 08/14/2024 11:02 AM EDT 08/14/2024 1:01 PM EDT Marry Esteves MD LAB BLOOD ORDERAB LES Final Result [facility] [address] [place] [phone] * Hepatitis B surface antigen, EIA (08/14/2024 11:02 AM EDT) Hepatitis B Surface Ag Negative Negative [facility] Blood Venous blood specimen / Unknown 08/14/2024 11:02 AM EDT 08/14/2024 1:01 PM EDT Marry Esteves MD LAB BLOOD ORDERAB LES Final Result Performing Organization Address [facility] Co de Phone Number [facility] [address] [place] [phone] * HIV-1/2 Antigen and Antibodies, Fourth Generation, with Reflexes (08/14/2024 11:02 AM EDT) [facility] HIV AB/AG Nonreactive Nonreactive [facility] Comment:HIV-1 p24 Ag and/or HIV-1/HIV-2 Ab not detected.A test result that is nonreactive does not exclude thepossibility of exposure to or infection with HIV-1 and/orHIV-2. Nonreactive results in this assay for individualswith prior exposure to HIV-1 and/or HIV-2 may be due toantigen and antibody levels that are below the limit ofdetection of this assay.The [employer] HIV Ag/Ab Combo assay result andsupplemental assay results should be interpreted inconjunction with the patient's clinical presentation,history and other laboratory results. If the results areinconsistent with clinical evidence, additional testing issuggested to confirm the result. Blood Venous blood specimen / Unknown 08/14/2024 11:02 AM EDT 08/14/2024 1:01 PM EDT Marry Esteves MD LAB BLOOD ORDERAB LES Final Result [facility] [address] [place] [phone] * (ABNORMAL) CBC (08/14/2024 11:02 AM EDT) White Blood Count 4.5(L) 4.8 - 10.8 X10*3/uL [facility] Red Blood Count 4.47 4.20 - 5.50 X10*6/uL [facility] Hemoglobin 13.6 12.0 - 16.0 g/dl [facility] Hematocrit 39.5 37.0 - 47.0 % [facility] Mean Corpuscular Volume 88.4 80.0 - 98.0 fL [facility] Mean Corpuscular Hemoglobin 30.4 27.0 - 33.0 pg [facility] Mean Corpuscular HGB Conc 34.4 31.0 - 35.0 g/dl [facility] Red Cell Distribution Width 12.8 11.0 - 16.0 % [facility] Platelet Count 249 160 - 400 X10*3/uL [facility] Mean Platelet Volume 10.1 9.4 - 12.3 fL [facility] NRBC Pct Auto 0.0 0.0 - 0.2 /100WBC [facility] NRBC Abs Auto 0.000 0.0 - 0.012 X10*3/uL [facility] Blood Venous blood specimen / Unknown 08/14/2024 11:02 AM EDT 08/14/2024 1:01 PM EDT us Marry Esteves MD LAB BLOOD ORDERAB LES Final Result [facility] [address] [place] [phone] * Hemoglobin A1c (08/14/2024 11:02 AM EDT) Hemoglobin A1c 4.9 <6.0 % [facility] Comment:Hemoglobin A1C Refer ence Range Adults: 4.8 - 6.0 % Non diabetic: < 6.0 % Goal: < 7.0 %Additional Action Suggested: > 8.0 %Note: Hemoglobin A1c results are invalid for patients with abnormal amounts of HbF. Blood transfusions may impact the HbA1c concentration in the patient sample. Estimated Average Glucose 94 mg/dL [facility] Comment:eAG = Estimated ave rage glucose which is %A1C expressed asaverage glucose, using the formula of the S4C-LvcukwkGvwbrls Glucose study (ADAG), Diabetes Care, Vol.31,#8,2007 Blood Venous blood specimen / Unknown 08/14/2024 11:02 AM EDT 08/14/2024 1:01 PM EDT us Marry Esteves MD LAB BLOOD ORDERAB LES Final Result [facility] [address] [place] [phone] * (ABNORMAL) Lipid Panel, Standard (08/14/2024 11:02 AM EDT) Triglycerides 87 <150 mg/dL [facility] Comment:Desirable Triglyceri de: less than 150 mg/dLBorderline High Triglyceride 150-199 mg/dLHigh Triglyceride: 200-499 mg/dLVery High Triglyceride: greater than or equal to 5OO mg/dL Cholesterol 176 <200 mg/dL [facility] Comment:Desirable Cholestero l: less than 200 mg/dLBorderline High Cholesterol: 200-239 mg/dLHigh Cholesterol: greater than 239 mg/dL LDL Cholesterol Calculated 113(H) <100 mg/dL [facility] Comment:Desirable LDL: less than 100 mg/dLNear Optimal/Above Optimal LDL: 110- 129 mg/dLBorderline High LDL: 130-159 mg/dLHigh LDL: 160-189 mg/dLVery High LDL: greater than or equal to 190 mg/dL HDL Cholesterol 46 >40 mg/dL [facility] Comment:Desirable HDL: great er than 40 mg/dL Note: This HDL assay may give artificially low results in patients with liver disease. Blood Venous blood specimen / Unknown 08/14/2024 11:02 AM EDT 08/14/2024 1:01 PM EDT us Marry Esteves MD LAB BLOOD ORDERAB LES Final Result [facility] [address] [place] [phone] * (ABNORMAL) Comprehensive Metabolic Panel (08/14/2024 11:02 AM EDT) Sodium 141 135 - 145 mmol/L [facility] Potassium 3.9 3.3 - 5.1 mmol/L [facility] Chloride 110(H) 96 - 108 mmol/L [facility] Carbon Dioxide 23 22 - 29 mmol/L [facility] Anion Gap 12 12 - 20 [facility] Urea Nitrogen (BUN) 8(L) 9 - 16 mg/dL [facility] Creatinine, Serum 0.67 0.5 - 1.4 mg/dL [facility] Estimated Glomerular Filt Rate >60 [facility] Comment:Chronic Kidney Disea se: Estimated GFR < 60 mL/min/1.40t8Lponaa Kidney Disease: Estimated GFR < 15 mL/min/1.73m2 Glucose 85 60 - 115 mg/dL [facility] Calcium 9.0 8.4 - 10.2 mg/dL [facility] Bilirubin, Total 0.5 0.0 - 1.0 mg/dL [facility] Aspartate Amino Transferase 21 5 - 31 U/L [facility] Alanine Aminotransferase 13 0 - 31 U/L [facility] Total Protein 7.2 6.5 - 8.0 g/dL [facility] Albumin Level 4.5 3.5 - 5.0 g/dL [facility] Alkaline Phosphatase 67 39 - 117 U/L [facility] Blood Venous blood specimen / Unknown 08/14/2024 11:02 AM EDT 08/14/2024 1:01 PM EDT Marry Esteves MD LAB BLOOD ORDERAB LES Final Result [facility] [address] [place] [phone] [phone] * POCT , urine manually resulted (08/08/2024 11:07 AM EDT) Only the most recent of2 resultswithin the time period is included. Preg Test, Ur Negative Negative, Indeterminate, None Detected, Invalid, Specimen unsatisfactory for evaluation, Weakly Positive, 2+ QC Media Lot # [id number] Lot# Expiration Date [id number] Urine 08/08/2024 11:0 7 AM EDT Kate Garcia CNM POINT OF CARE TEST ENTER/ EDIT ORDERABLES Final Result * BI US Breast Limited Bilateral (08/01/2024 11:30 AM EDT) Anatomical Region Laterality Modality Breast Bilateral Ultrasound 08/01/2024 11:3 0 AM EDT Narrative 08/14/2024 11:55 AM EDT [facility] [address] [place] [address] Ultrasound Report Signed Patient: Mis Swanson MR#: [id number] : 1990 Acct:[id number] Age/Sex: 33 / F ADM Date: 08/01/24 Loc: HO.MAMMO Attending Dr: Marry Esteves MD Ordering Physician: Marry Cabrera MD Date of Service: 08/01/24 Procedure(s): US breast BI limited mamm only Accession Number(s): [id number] cc: Marry Cabrera MD EXAMINATION: MM DIAGNOSTIC [...] mammography (ACR BI-RADS breast composition Category d). [place] markers bilateral upper outer breast at site [...] 08/01/24 1150 DD/ 1130 TD/TT: 08/01/24 1205 Payable Representative: Procedure Note Donotuseinterpreter, Image - 08/14/2024 [facility] [address] [place] [address] Ultrasound Report Signed Patient: Mis SwansonMR#: [id number] : 1990Acct:[id number] Age/Sex: 33 / FADM Date: 08/01/24 Loc: HO.MAMMO Attending Dr: Marry Esteves MD Ordering Physician: Marry Cabrera MD Date of Service: 08/01/24 Procedure(s): US breast BI limited mamm only Accession Number(s): [id number] cc: Marry Cabrera MD EXAMINATION: MM DIAGNOSTIC [...] mammography (ACR BI-RADS breast composition Category d). [place] markers bilateral upper outer breast at site [...] 08/01/24 1150 DD/ 1130 TD/TT: 08/01/24 1205 Payable Representative: Marry Esteves MD IMG US PROCEDURES Edited Result - Final * BI Mammogram Diagnostic Tomosynthesis Bilateral (08/01/2024 11:00 AM EDT) Anatomical Region Laterality Modality Breast Bilateral Mammography 08/01/2024 11:0 0 AM EDT Narrative 08/01/2024 11:53 AM EDT [facility] [facility] [address] [place] [address] Mammography Report Signed Patient: Mis Swanson MR#: [id number] : 1990 Acct:[id number] Age/Sex: 33 / F ADM Date: 08/01/24 Loc: HO.MAMMO Attending Dr: Marry Esteves MD Ordering Physician: Marry Cabrera MD Re sults: 2Benign Findings Date of Service: 08/01/24 Follow Up: 1 Year From Orig ina Mammogram Procedure(s): MM tomosynthesis diagnostic BI Accession Number(s): [id number] cc: Marry Cabrera MD EXAMINATION: MM DIAGNOSTIC [...] mammography (ACR BI-RADS breast composition Category d). [place] markers bilateral upper outer breast at site [...] 08/01/24 1150 DD/ 1100 TD/TT: 08/01/24 1121 Payable Representative: Procedure Note Donotuseinterpreter, Image - 08/14/2024 [facility] [address] [place] [address] Mammography Report Signed Patient: Mis Swanson#: [id number] : 1990Acct:[id number] Age/Sex: 33 / FADM Date: 08/01/24 Loc: HO.MAMMO Attending Dr: Marry Esteves MD Ordering Physician: Marry Cabrera sults: 2Benign Findings Date of Service: 08/01/24Follow Up: 1 Year From [facility] Mammogram Procedure(s): MM tomosynthesis diagnostic BI Accession Number(s): [id number] cc: Marry Cabrera MD EXAMINATION: MM DIAGNOSTIC [...] mammography (ACR BI-RADS breast composition Category d). [place] markers bilateral upper outer breast at site [...] 08/01/24 1150 DD/ 1100 TD/TT: 08/01/24 1121 Payable Representative: us Marry Esteves MD IMG BI PROCEDURES Edited Result - Final * HPV mRNA E6/E7 w/Reflex to HPV Genotypes 16, 18/45 (05/24/2023 10:29 AM EDT) HPV nRNA E6/E7 Not Detected Not Detected [facility] Comment:Methodology: Transcr iption-Mediated AmplificationThis assay detects E6/E7 viral messenger RNA (mRNA) from 14high-risk HPV types (16,18,31,33,35,39,45,51,52,56,58,59,66,68).Cervical sources are required for HPV testing.If a vaginal source from a patient who has had atotal hysterectomy with removal of cervix wassubmitted, please contact the testing laboratoryfor alternative testing options.For additional information, please refer [email or web address](This link if provided for information/educational purposes only.)THIS TEST WAS PERFORMED AT:[employer] [place] [phone] MATTHEWS MD HPV mRNA E6/E7 TNP [facility] HPV 16 [facility] HPV 18/45 RNA [facility] 05/24/2023 10:2 9 AM EDT 05/25/2023 9:15 AM EDT Kate Garcia CNM LAB CYTOLOGY ORDERABLES F inal Result [facility] [address] [place] [phone] * Pap Smear (05/24/2023 10:29 AM EDT) Swab Cervix uteri structure / Unknown 05/24/2023 10:29 AM EDT 05/25/2023 9:15 AM EDT Narrative [facility] - 06/01/2023 9:33 AM EDT ----- ------- Name: Prashant SorensenMis Age/Sex: 32/F : 1990 Unit#: [id number] Attend Dr: KATE GARCIA CNM Re05/24/23 Status: DEP REF Location: [facility] Disch: ----- ------- SPEC : [id number] RECD: 05/25/23 STATUS: SIMI LEE NUM: [id number] JHONNY: 05/24/23-[address] [facility] [address]: KATE GARCIA [facility] ENTERED: 05/25/23-1301 SP TYPE: Pap Smr OTHR DR: ORDERED: Pap Smear Interpretation Satisfactory for evaluation. No endocervical cells seen. Negative for intraepithelial lesion or malignancy. HPV mRNA E6/E7: NOT DETECTED This assay detects E6/E7 viral messenger RNA (mRNA) from 14 high-risk HPV types (16, 18, 31, 33, 35, 39, 45, 51, 52, 56, 58, 59, 66, 68) HPV testing performed by [employer], [place], [place]. See reference laboratory portion of the EMR for entire report. Clinical Information LMP: Unknown date Previous PAP test: Unknown date/findings Material Received ThinPrep-Vaginal/Cervical ----- ------- Signed (signature on file) MIHIR Angela (ASC) 06/01/23 0933 ----- ------- END OF REPORT Kate Garcia [facility] LAB CYTOLOGY ORDERABLES F inal Result [facility] [address] [place] [phone] from Last 3 Months or Most Recently Relevant to Health Maintenance Insurance [facility] Care Teams Bike Mechanic Relationship Specialty Start Date End Date Marry Cabrera MD [address] [place] [phone] PCP - General Internal Medicine 04/30/23
== END 2024-09-08 08:24 | disposition home or self-care (01) ==
LOC: HO.US 08:23
PROVIDERS: PCP Student in an Organized Health Care Education/Training Program; Visit Provider Student in an Organized Health Care Education/Training Program
DX: M79.605 Pain in left leg (principal)
CPT/HCPCS: 93971

== ENCOUNTER → 2024-09-08 09:00 | Outpatient (BNV) | payer SELFPAY | PROVIDERS: PCP Student in an Organized Health Care Education/Training Program; Visit Provider Radiology Diagnostic Radiology | DX: M79.605 Pain in left leg (principal) | CPT/HCPCS: 93971 ==

== ENCOUNTER 2024-10-27 14:16 | Outpatient (REF) | payer MEDICAID, OTHER, SELFPAY ==
[2024-10-27 16:16] LABS: MANUAL DIFF FLAG NO
[2024-10-27 16:37] LABS: Hematocrit 39.4 % (37.0-47.0); Hemoglobin 13.5 g/dl (12.0-16.0); Imm Gran Abs Auto 0.08 X10*3/uL (0.00-0.03); Imm Gran Pct Auto 0.9 % (0.0-0.4); Lymphocytes Absolute Auto 0.9 X10*3/uL (1.2-4.9); Mean Corpuscular HGB Conc 34.3 g/dl (31.0-35.0); Mean Corpuscular Hemoglobin 30.1 pg (27.0-33.0); Mean Corpuscular Volume 87.8 fL (80.0-98.0); NRBC Abs Auto 0.000 X10*3/uL (0.0-0.012); NRBC Pct Auto 0.0 /100WBC (0.0-0.2); Platelet Count 282 X10*3/uL (160-400); Red Blood Count 4.49 X10*6/uL (4.20-5.50); White Blood Count 9.4 X10*3/uL (4.8-10.8)
[2024-10-27 17:00] LABS: Alanine Aminotransferase 16 U/L (0-31); Albumin Level 4.4 g/dL (3.5-5.0); Alkaline Phosphatase 62 U/L (39-117); Anion Gap 15 (12-20); Aspartate Amino Transferase 20 U/L (5-31); Blood Urea Nitrogen 11 mg/dL (9-16); Calcium 8.7 mg/dL (8.4-10.2); Carbon Dioxide 20 mmol/L (22-29); Chloride 108 mmol/L (96-108); Estimated Glomerular Filt Rate > 60; Potassium 3.9 mmol/L (3.3-5.1); Sodium 139 mmol/L (135-145); Total Protein 7.1 g/dL (6.5-8.0)
== END 2024-10-27 14:17 | disposition home or self-care (01) ==
LOC: HO.HHCL 14:16
PROVIDERS: PCP Student in an Organized Health Care Education/Training Program; Visit Provider Student in an Organized Health Care Education/Training Program
DX: K52.9 Noninfective gastroenteritis and colitis, unspecified (principal)
CPT/HCPCS: 36415; 80053; 85025

== ENCOUNTER 2024-12-26 10:09 | Outpatient (REF) | payer MEDICAID, OTHER, SELFPAY ==
--- NOTE | 2024-12-26 | EMG_ITS ---
Chief complaint: Numbness and pain in the left leg - buttock region Reason for referral: M79.18 Left buttock pain, R20.0 Referred by: Marry Esteves MD Procedure done: Left lower extremity NCS / EMG Left peroneal and tibial motor studies were performed with F responses and tibial H-reflex was obtained. Left superficial peroneal and sural sensory studies were performed an EMG needle examination was performed. Impression: This is an unremarkable study with no evidence of radiculopathy or an entrapment neuropathy. MTDD
--- OUTSIDE RECORDS SUMMARY | 2024-12-26 11:45 | XMS_ITS | Encounter Summary ---
Author Organization [employer] Address [address] [place] [address] 7 [place] [address] Care Team Providers Care Assistant Men'S Soccer Coach Name Role Phone Marry Cabrera MD Primary Care Pro vider Encounter Details Date Type Department Care Team ([facility] st Contact Info) Description 05/27/2023 Orders Only [facility] [address] [place], [place] [phone] Melissa Melchor CNM [address] [place] [address] Social History Tobacco Use Types Packs/Day Years [...] with others, in a hotel, in a group home, living outside on the street, on a [...] Care Team (Late st Contact Info) Description 01/17/2025 3:30 PM EST Clinical Support [address] [address] 02/01/2025 10:30 AM EST Office Visit [address] [address] Marry Cabrera MD [address] [place] [phone] documented as of this encounter Visit Diagnoses Not on filedocumented in this encounter Additional Health Concerns Assessment Noted Time PHQ-9 Depression Total Score: 10 024 2:17 PM EST documented as of this encounter Care Teams Assistant Men'S Soccer Coach Relationship Specialty Start Date End Date Marry Cabrera MD [address] [place] [phone] PCP - General Internal Medicine 04/30/23 documented as of this encounter
--- OUTSIDE RECORDS SUMMARY | 2024-12-26 11:46 | XMS_ITS | Clinical Summary ---
Author Organization [employer] Address [address] [place] [address] 7 [place] [address] Care Team Providers Care Shirt Bander Name Role Phone Marry Cabrera MD Primary Care Pro vider Allergies No known active allergies Medications * This document contains information received from the source organization and may not represent a complete record from that organization. melatonin 5 MG tablet Take 1 tablet (5 mg) by mouth Once per day. 30 tablet 2 5 Active medroxyPROGESTE Cam (Depo-Provera) 150 MG/ML injection Inject 1 mL (150 mg) into the muscle every 3 (three) months. 1 mL 3 5 Active simethicone (Mylicon,Gas-X) 125 MG capsuleIndicati ons:Gastroenter itis Take 1 capsule (125 mg) by mouth every 6 (six) hours if needed for flatulence. 14 capsule 5 Active Omeprazole 20 MG tablet delayed-release Take 1 tablet (20 mg) by mouth Once per day. 90 tablet 5 Active metroNIDAZOLE (Metrogel) 0.75 % gelIndications: Rosacea Apply topically 2 times daily. 45 g 3 5 11/18/19 26 Active Active Problems Problem Noted Date Diagnosed Date Nausea vomiting and diarrhea 10/28/2024 Left buttock pain 08/23/2024 Gastritis 08/23/2024 Adjustment disorder with mixed anxiety and depre ssed mood 06/21/2024 Recurrent genital herpes 05/28/2023 Vertigo 05/28/2023 Health care maintenance 05/02/2023 Lower urinary tract symptoms (LUTS) 05/02/2023 Insomnia 05/02/2023 Chronic pelvic pain in female 05/02/2023 Resolved Problems Problem Noted Date Diagnosed Date Resolved Date Mastalgia 06/21/2024 08/23/2024 Pruritus 08/18/2023 06/21/2024 Encounters Date Type Department Care Team Description 11/17/2024 4:00 PM EDT Office Visit [address] [address] Johny Patterson MD Rosacea 11/17/2024 Travel 11/02/[address] [address] Marry Cabrera MD 10/30/[address] [address] Marry Cabrera MD telephone call 10/27/2024 1:30 PM EDT Office Visit [address] [address] Marry Cabrera MD Left buttock pain (Primary Dx); Numbness; Gastroenteritis; Gastritis without bleeding, unspecified chronicity, unspecified gastritis type; Spotting; Health care maintenance; Nausea vomiting and diarrhea 10/27/2024 Travel 10/26/[address] [address] Marry Cabrera MD chart prep 10/24/2024 10:30 AM EDT Clinical Support [address] [address] Hanna Kimbrough RN Encounter for contraceptive management, unspecified type 10/24/2024 Travel from Last 3 Months Immunizations Immunization Administration [...] Sign Reading Time Taken Comments Blood Pressure 120/82 11/17/2024 3:06 PM EDT Pulse 88 11/17/2024 3:06 PM EDT Temperature 37.2 C (98.9 F) 11/17/2024 3:06 PM EDT Respiratory Rate 20 11/17/2024 3:06 PM EDT Oxygen Saturation 98% 11/17/2024 3:06 PM EDT Inhaled Oxygen Concentration - - Weight 61.3 kg (135 lb 3.2 oz) 11/17/2024 3:06 P M EDT Height 152.4 cm (5') 10/27/2024 1:44 PM EDT Body Mass Index 26.4 10/27/2024 1:44 PM EDT Plan of Treatment Upcoming Encounters Date Type Department Care Team (Late st Contact Info) Description 01/17/2025 3:30 PM EST Clinical Support [address] [address] 02/01/2025 10:30 AM EST Office Visit [address] [phone] Marry Cabrera MD [address] [place] [phone] Health Maintenance Due Date Last Done Comments COVID-19 Vaccine ( - 2024-2 6 season) 2024 04/29/2023 Influenza Vaccine (#1) 2024 04/29/2023 Depression Monitoring 12/20/2024 06/20/2024 , 06/20/2024 Alcohol/Substance Use Screening 06/20/2025 06/20/2024 Disability Screening 06/20/2025 06/20/2024 SDOH Screening 06/20/2025 06/20/2024 Family Planning (PISQ) 08/08/2025 08/08/2024 Tobacco Screening 11/17/2025 11/17/2024 Cervical Cancer Screening 05/23/2028 HPV/Cotest 05/23/2028 05/24/2023 [...] Procedure Name Priority Date/Time Associated Diagnosis Comments COMPREHENSIVE METABOLIC PANEL Routine 10/27/2024 2:27 PM EDT Gastroenteritis CBC WITH AUTO DIFFERENTIAL Routine 10/27/2024 2:27 PM EDT Gastroenteritis POCT , URINE Routine 10/27/2024 2:07 PM EDT Spotting HEPATITIS C AB W/REFL TO HCV RNA, QN, PCR Routine 08/14/2024 11:02 AM EDT Annual physical exam HIV 1/2 ANTIGEN/ANTIBODY, FOURTH GENERATION W/RFL Routine 08/14/2024 11:02 AM EDT Annual physical exam HPV MRNA E6/E7 REFLEX TO HPV 16, 18/45 Routine 05/24/2023 10:29 AM EDT PAP SMEAR Routine 05/24/2023 10:29 AM EDT Cervical cancer screening from Last 3 Months or Most Recently Relevant to Health Maintenance Results * (ABNORMAL) CBC auto differential (10/27/2024 2:27 PM EDT) White Blood Count 9.4 4.8 - 10.8 X10*3/uL [facility] Red Blood Count 4.49 4.20 - 5.50 X10*6/uL [facility] Hemoglobin 13.5 12.0 - 16.0 g/dl [facility] Hematocrit 39.4 37.0 - 47.0 % [facility] Mean Corpuscular Volume 87.8 80.0 - 98.0 fL [facility] Mean Corpuscular Hemoglobin 30.1 27.0 - 33.0 pg [facility] Mean Corpuscular HGB Conc 34.3 31.0 - 35.0 g/dl [facility] Red Cell Distribution Width 12.7 11.0 - 16.0 % [facility] Platelet Count 282 160 - 400 X10*3/uL [facility] Mean Platelet Volume 9.9 9.4 - 12.3 fL [facility] Neutrophils Percent Auto 82.3(H) 45 - 73 % [facility] Imm Gran Pct Auto 0.9(H) 0.0 - 0.4 % [facility] Lymphocytes Percent Auto 9.7(L) 20 - 40 % [facility] Monocytes Percent Auto 6.7 2 - 11 % [facility] Eosinophils Percent Auto 0.3 0 - 4 % [facility] Basophils Percent Auto 0.1 0 - 2 % [facility] NRBC Pct Auto 0.0 0.0 - 0.2 /100WBC [facility] Neutrophils Absolute Auto 7.7 2.0 - 8.3 x10*3/uL [facility] Imm Gran Abs Auto 0.08(H) 0.00 - 0.03 X10*3/uL [facility] Lymphocytes Absolute Auto 0.9(L) 1.2 - 4.9 X10*3/uL [facility] Monocytes Absolute Auto 0.6 0.1 - 1.2 X10*3/uL [facility] Eosinophils Absolute Auto 0.0 0.0 - 0.4 X10*3/uL [facility] Basophils Absolute Auto 0.0 0.0 - 0.2 X10*3/uL [facility] NRBC Abs Auto 0.000 0.0 - 0.012 X10*3/uL [facility] Blood Venous blood specimen / Unknown 10/27/2024 2:27 PM EDT 10/27/2024 4:08 PM EDT Marry Esteves MD LAB BLOOD ORDERAB LES Final Result [facility] [address] [place] [address] [phone] * (ABNORMAL) Comprehensive Metabolic Panel (10/27/2024 2:27 PM EDT) Sodium 139 135 - 145 mmol/L [facility] Potassium 3.9 3.3 - 5.1 mmol/L [facility] Chloride 108 96 - 108 mmol/L [facility] Carbon Dioxide 20(L) 22 - 29 mmol/L [facility] Anion Gap 15 12 - 20 [facility] Urea Nitrogen (BUN) 11 9 - 16 mg/dL [facility] Creatinine, Serum 0.66 0.5 - 1.4 mg/dL [facility] Estimated Glomerular Filt Rate >60 [facility] Comment:Chronic Kidney Disea se: Estimated GFR < 60 mL/min/1.60h0Zhnsgg Kidney Disease: Estimated GFR < 15 mL/min/1.73m2 Glucose 103 60 - 115 mg/dL [facility] Calcium 8.7 8.4 - 10.2 mg/dL [facility] Bilirubin, Total 0.6 0.0 - 1.0 mg/dL [facility] Aspartate Amino Transferase 20 5 - 31 U/L [facility] Alanine Aminotransferase 16 0 - 31 U/L [facility] Total Protein 7.1 6.5 - 8.0 g/dL [facility] Albumin Level 4.4 3.5 - 5.0 g/dL [facility] Alkaline Phosphatase 62 39 - 117 U/L [facility] Blood Venous blood specimen / Unknown 10/27/2024 2:27 PM EDT 10/27/2024 4:08 PM EDT Marry Esteves MD LAB BLOOD ORDERAB LES Final Result Performing Organization Address [facility]/ZIP Co de Phone Number [facility] [address] [place] [phone] * POCT Urine (10/27/2024 2:07 PM EDT) Pathologist [facility] Preg Test, Ur Negative Negative, Indeterminate, None Detected, Invalid, Specimen unsatisfactory for evaluation, Weakly Positive, 2+ QC Media Lot # [id number] Lot# Expiration Date [id number] Urine 10/27/2024 2:07 PM EDT Result [facility] Marry Esteves MD POINT OF CARE GARRETT T ENTER/EDIT ORDERABLES Final Result * Hepatitis C Antibody with Reflex to HCV, RNA, Quantitative, Real-Time PCR (08/14/2024 11:02 AM EDT) [facility] Hepatitis C Antibody Nonreactive Nonreactive [facility] Comment:Antibodies to HCV no t detected; does not exclude early acuteHCV infection. Blood Venous blood specimen / Unknown 08/14/2024 11:02 AM EDT 08/14/2024 1:01 PM EDT Marry Esteves MD LAB BLOOD ORDERAB LES Final Result Performing Organization Address [facility]/ZIP Co de Phone Number [facility] [address] [place] [phone] * HIV-1/2 Antigen and Antibodies, Fourth Generation, with Reflexes (08/14/2024 11:02 AM EDT) Pathologist [facility] HIV AB/AG Nonreactive Nonreactive [facility] Comment:HIV-1 p24 Ag and/or HIV-1/HIV-2 Ab not detected.A test result that is nonreactive does not exclude thepossibility of exposure to or infection with HIV-1 and/orHIV-2. Nonreactive results in this assay for individualswith prior exposure to HIV-1 and/or HIV-2 may be due toantigen and antibody levels that are below the limit ofdetection of this assay.The [employer] HIV Ag/Ab Combo assay result andsupplemental assay results should be interpreted inconjunction with the patient's clinical presentation,history and other laboratory results. If the results areinconsistent with clinical evidence, additional testing issuggested to confirm the result. Blood Venous blood specimen / Unknown 08/14/2024 11:02 AM EDT 08/14/2024 1:01 PM EDT us Marry Esteves MD LAB BLOOD ORDERAB LES Final Result [facility] [address] [place] [phone] * HPV mRNA E6/E7 w/Reflex to HPV Genotypes 16, 18/45 (05/24/2023 10:29 AM EDT) Pathologist [facility] HPV nRNA E6/E7 Not Detected Not Detected [facility] Comment:Methodology: Transcr iption-Mediated AmplificationThis assay detects E6/E7 viral messenger RNA (mRNA) from 14high-risk HPV types (16,18,31,33,35,39,45,51,52,56,58,59,66,68).Cervical sources are required for HPV testing.If a vaginal source from a patient who has had atotal hysterectomy with removal of cervix wassubmitted, please contact the testing laboratoryfor alternative testing options.For additional information, please refer [email or web address]/[email or web address](This link if provided for information/educational purposes only.)THIS TEST WAS PERFORMED AT:[employer] [place] [phone] MATTHEWS MD HPV mRNA E6/E7 TNP [facility] HPV 16 RNA TNP [facility] HPV 18/45 RNA TNP [facility] 05/24/2023 10:2 9 AM EDT 05/25/2023 9:15 AM EDT Melissa Garcia CNM LAB CYTOLOGY ORDERABLES F inal Result [facility] [address] [place] [phone] * Pap Smear (05/24/2023 10:29 AM EDT) Swab Cervix uteri structure / Unknown 05/24/2023 10:29 AM EDT 05/25/2023 9:15 AM EDT Narrative [facility] - 06/01/2023 9:33 AM EDT ----- ------- Name: Mis Swanson Age/Sex: 32/F : 1990 Unit#: [id number] Attend Dr: MELISSA GARCIA CNM Re05/24/23 Status: DEP REF Location: HO.HHCLNP Disch: ----- ------- SPEC : [id number] RECD: 05/25/23 STATUS: SIMI LEE NUM: [id number] JHONYN: 05/24/23-1029 [facility] DR: MELISSA GARCIA CNM ENTERED: 05/25/23-130 SP TYPE: Pap Smr OTHR DR: ORDERED: Pap Smear Interpretation Satisfactory for evaluation. No endocervical cells seen. Negative for intraepithelial lesion or malignancy. HPV mRNA E6/E7: NOT DETECTED This assay detects E6/E7 viral messenger RNA (mRNA) from 14 high-risk HPV types (16, 18, 31, 33, 35, 39, 45, 51, 52, 56, 58, 59, 66, 68) HPV testing performed by [facility], [place], [place]. See reference laboratory portion of the EMR for entire report. Clinical Information LMP: Unknown date Previous PAP test: Unknown date/findings Material Received ThinPrep-Vaginal/Cervical ----- ------- Signed (signature on file) MIHIR Angela (ASCP) 06/01/23 0933 ----- ------- END OF REPORT Melissa Garcia CNM LAB CYTOLOGY ORDERABLES F inal Result [facility] [address] [place] [address] [phone] from Last 3 Months or Most Recently Relevant to Health Maintenance Insurance [facility] [employer] Care Teams Shirt Bander Relationship Specialty Start Date End Date Marry Cabrera MD [address] [place], [place] [phone] PCP - General Internal Medicine 04/30/23
== END 2024-12-26 10:10 | disposition home or self-care (01) ==
LOC: HO.NEURO 10:09
PROVIDERS: PCP Student in an Organized Health Care Education/Training Program; Visit Provider Student in an Organized Health Care Education/Training Program
DX: M79.18 Myalgia, other site (principal); R20.0 Anesthesia of skin; M79.605 Pain in left leg
CPT/HCPCS: 95886; 95910

== ENCOUNTER → 2024-12-26 10:13 | Outpatient (BNV) | payer SELFPAY | PROVIDERS: PCP Student in an Organized Health Care Education/Training Program; Visit Provider Psychiatry & Neurology Neurology | DX: R20.0 Anesthesia of skin (principal); M79.18 Myalgia, other site | CPT/HCPCS: 95886; 95910 ==

== ENCOUNTER 2025-02-16 11:57 | Outpatient (REF) | payer SELFPAY ==
[2025-02-16 14:30] LABS: E. coli EAEC Not Detected (Not Detect.); E. coli EPEC Not Detected (Not Detect.); E. coli ETEC Not Detected (Not Detect.); E. coli STEC Not Detected (Not Detect.); Shigella sp./EIEC Not Detected (Not Detect.)
== END 2025-02-16 11:58 | disposition home or self-care (01) ==
LOC: HO.LNP 11:57
PROVIDERS: Visit Provider Student in an Organized Health Care Education/Training Program
DX: K29.70 Gastritis, unspecified, without bleeding (principal); K52.9 Noninfective gastroenteritis and colitis, unspecified
CPT/HCPCS: 87338; 87507